=== PATIENT | male | born 1940 | race Caucasian/White ===

== ENCOUNTER 2018-01-01 15:44 | Emergency (ER) | payer OTHER ==
[2018-01-01 16:05] VITALS: BP 166/94; PULSE 73; BMI 22.0
--- NOTE | 2018-01-01 18:19 | PDOC ---
History of Present Illness - General Chief Complaint: G Tube Problem Stated Complaint: G TUBE REPLACEMENT Time Seen by Provider: 01/01/18 16:58 History Source: Spouse Exam Limitations: No Limitations - History of Present Illness Travel History: No Initial Comments: 01/01/18 18:14 77 year old male with history of TBI presents to the emergency him for evaluation of G-tube replacement. As per she states the tube was not flushing well and is concerned that is not functioning properly. also states is noted black specks in the tube and not sure what it is. She is also requesting that the tip of the G-tube be change secondary to small tear in the plastic but denies leakage. states patient was able to get his meds and feeding today Timing/Duration: reports: other Past History - Past Medical History Allergies/Adverse Reactions: Allergies Allergy/AdvReac Type Severity Reaction Status Date / Time No Known Allergies Allergy Verified 01/01/18 15:48 COPD: No Thyroid Disease: Yes Other medical history: TBI, divertuculitis - Suicide/Smoking/Psychosocial Hx Smoking History: Unknown if ever smoked Patient Lives Alone: No Lives with/in: spouse/SO Review of Systems - Review of Systems Able to Perform ROS?: Yes Constitutional: No: Symptoms Reported ABD/GI: No: Constipated, Diarrhea, Vomiting Integumentary: No: Symptoms Reported *Physical Exam - Vital Signs Last Vital Signs Temp Pulse Resp BP Pulse Ox 73 18 166/94 98 01/01/18 15:48 01/01/18 15:48 01/01/18 15:48 01/01/18 15:48 - Physical Exam General Appearance: Yes: Nourished, Appropriately Dressed. No: Apparent Distress HEENT: negative: Pale Conjunctivae Respiratory/Chest: positive: Lungs Clear, Normal Breath Sounds. negative: Respiratory Distress, Accessory Muscle Use Cardiovascular: positive: Regular Rhythm, Regular Rate. negative: Murmur Gastrointestinal/Abdominal: positive: Soft, Other (g-tube site intact, with no erythema, drainage, or swelling. G-tube with tanish yellow fluid within the tube). negative: Tenderness Extremity: positive: Normal Capillary Refill Integumentary: positive: Normal Color, Warm, Moist Medical Decision Making - Medical Decision Making 01/01/18 18:20 Patient here for evaluation of G-tube. As per she was concerned that it was not flushing well and there was black flecks within the tube along with small tear at the flange on the G-tube tip. Catheter secured in place. Using the orange declogger ,I was able to pass through without difficulty removing small particles of whitish small particles. Flushed with 120 mL of sterile water without difficulty. Unable to remove black flecks within the tube which appear to be within the lining of the G-tube. Unable to locate within the hospital (IR and OR) the matching G-tube tip for the G-tube #20. Patient will be discharged home with at home health aid. *DC/Admit/Observation/Transfer Diagnosis at time of Disposition: Gastrointestinal tube present, Gastrostomy tube obstruction - Discharge Dispostion Disposition: HOME Condition at time of disposition: Improved - Referrals - Patient Instructions Printed Discharge Instructions: How to Care for Your PEG Tube Additional Instructions: Please flush the tube after meals with water to decrease buildup within the tube. At this time I do not have the correct attachment for the G-tube and recommending contacting the training manager that placed the tube for replacement. - Post Discharge Activity
== END 2018-01-01 22:08 | disposition home or self-care (01) ==
LOC: JER 15:44
DX: Z46.59 Encounter for fitting and adjustment of other gastrointestinal appliance and device (principal); S06.9X0A Unspecified intracranial injury without loss of consciousness, initial encounter; E07.9 Disorder of thyroid, unspecified
CPT/HCPCS: 99281-25

== ENCOUNTER 2018-03-02 08:35 | Day surgery (SDC) | payer OTHER ==
[2018-02-25 12:55] VITALS: BMI 21.2
[2018-03-02] MEDS ORDERED: PROPOFOL 20 ML ONE (08:54)
[2018-03-02 09:20] VITALS: TEMP 98.3
[2018-03-02 11:25] VITALS: PULSE 67
[2018-03-02 12:08] VITALS: BP 124/78
== END 2018-03-02 12:20 | disposition home or self-care (01) ==
LOC: FASU-ENDO 08:35
PROVIDERS: ATTEND Internal Medicine Gastroenterology
PROC: 0DH63UZ Insertion of Feeding Device into Stomach, Percutaneous Approach (ICD-10-PCS; principal; 2018-03-02 10:45)
DX: Z43.1 Encounter for attention to gastrostomy (principal); R13.10 Dysphagia, unspecified

== ENCOUNTER 2019-03-02 18:16 | Emergency (ER) | payer OTHER ==
--- NOTE | 2019-03-02 18:25 | PDOC ---
History of Present Illness - General Chief Complaint: Pain Stated Complaint: PAIN History Source: Care Provider, Spouse Exam Limitations: Other - History of Present Illness Initial Comments: 03/02/19 18:20 HPI limited, pt nonverbal at baseline. 79 year old male with PMH TBI, hypothyroidism, nonverbal at baseline, peg tube, condom catheter use brought to ED for presumed abdominal pain by and package reinspector since yesterday. Per and package reinspector, pt has been leaning forward and appearing in pain intermittently. Pt is unable to localize pain. and package reinspector denied nausea, vomiting, diarrhea, constipation, blood in urine, blood in stool, fever, chills. Allergies: NKDA Past History - Past Medical History Allergies/Adverse Reactions: Allergies Allergy/AdvReac Type Severity Reaction Status Date / Time No Known Allergies Allergy Verified 03/02/19 18:18 Home Medications: Ambulatory Orders Ascorbate Calcium [Vitamin C] 500 mg GT DAILY 02/12/18 Baclofen 10 mg GT DAILY 02/12/18 Donepezil HCl 5 mg GT DAILY 02/12/18 Famotidine 20 mg GT DAILY 02/12/18 Levothyroxine [Synthroid -] 50 mcg GT DAILY 02/12/18 Risperidone 0.25 mg GT TID 02/12/18 Anemia: No Asthma: No Cancer: No Cardiac Disorders: No CVA: No COPD: No CHF: No Dementia: No Diabetes: No GI Disorders: No Disorders: No HTN: No Hypercholesterolemia: No Liver Disease: No Seizures: No Thyroid Disease: Yes - Surgical History Abdominal Surgery: No Appendectomy: No Cardiac Surgery: No Cholecystectomy: No Lung Surgery: No Neurologic Surgery: No Orthopedic Surgery: No - Suicide/Smoking/Psychosocial Hx Smoking History: Never smoked Hx Alcohol Use: No Drug/Substance Use Hx: No Substance Use Type: None Hx Substance Use Treatment: No Review of Systems - Review of Systems Able to Perform ROS?: Yes Comments:: 03/02/19 18:22 Unable to perform ROS. Pt is nonverbal. *Physical Exam - Physical Exam Comments: 03/02/19 18:22 Constitutional: Well-nourished, Well-developed, appearing stated age. HEENT: head is normocephalic, atraumatic. EOMI. PERRLA. Neck: supple. Full ROM. Heart: regular rhythm. no murmurs, rubs or gallops. Lungs: clear to auscultation bilaterally. no crackles, rhonchi or wheezing. no stridor. Abdomen: soft, nontender. normal bowel sounds. no rebound, guarding, masses. g- tube in place, no surrounding erythema, no discharge. Extremities: peripheral pulses intact. no lower extremity edema. Neurological: CN 2-12 grossly intact. moves all four extremities. Psych: awake, alert. intermittently follows commands. does not answer questions appropriately with yes/no head shaking. tracking with eyes. ED Treatment Course - LABORATORY CBC & Chemistry Diagram: 03/02/19 19:25 03/02/19 19:25 Medical Decision Making - Medical Decision Making 03/02/19 18:23 79 year old male with above PMH presented to ED for presumed abdominal pain. Initial Vital Signs Temp Pulse Resp BP Pulse Ox 98.2 F 67 16 143/83 99 03/02/19 18:18 03/02/19 18:18 03/02/19 18:18 03/02/19 18:18 03/02/19 18:18 Afebrile. No tachycardia. No tachypnea. Mild hypertension. No hypoxia on room air. Labs ordered: CBC, CMP, Mag, Phos, Lactate, coags Imaging ordered: CXR, CT abdomen/pelvis without contrast Medications ordered: Tylenol IV 03/02/19 19:01 Pt signed out to Dr. Gonzalez. Pending labs, imaging and discharge disposition. 03/02/19 22:25 Follow up: CBC WBC 4.1 K/mm3 (4.0-10.8) 03/02/19 19: RBC 4.36 M/mm3 (4.00-5.60) 03/02/19 19:25 Hgb 13.7 GM/dl (11.7-16.9) 03/02/19 19: Hct 41.3 % (35.4-49) 03/02/19 19: MCV 94.7 fl (80-96) 03/02/19 19: MCH 31.3 pg (25.7-33.7) 03/02/19: MCHC 33.1 g/dl (32.0-35.9) 03/02/19: RDW 12.4 % (11.9-15.9) 03/02/19 19:25 Plt Count 234 K/MM3 (134-434) 03/02/19 19:25 MPV 9.7 fl (7.5-11.1) 03/02/19 19:25 Absolute Neuts (auto) 2.6 K/mm3 03/02/19 19:25 Neutrophils % 62.8 % (42.8-82.8) 03/02/19 19:25 Lymphocytes % 27.6 % (8-40) 03/02/19 19:25 Monocytes % 6.2 % (3.8-10.2) 03/02/19 19:25 Eosinophils % 2.3 % (0-4.5) 03/02/19 19:25 Basophils % 1.1 % (0-2.0) 03/02/19 19:25 No leukocytosis. No anemia. CMP Sodium 140 mmol/L (136-145) 03/02/19 19:25 Potassium 4.2 mmol/L (3.5-5.1) 03/02/19 19:25 Chloride 104 mmol/L (98-107) 03/02/19 19:25 Carbon Dioxide 26 mmol/L (21-32) 03/02/19 19:25 Anion Gap 10 MMOL/L (8-16) 03/02/19 19:25 BUN 19 mg/dl (7-18) H 03/02/19 19:25 Creatinine 0.8 mg/dl (0.55-1.3) 03/02/19 19:25 Creat Clearance w eGFR 93.49 (>60) 03/02/19 19:25 Random Glucose 107 mg/dl (74-106) H 03/02/19 19:25 Lactic Acid 1.4 mmol/L (0.4-2.0) 03/02/19 19:25 Calcium 9.0 mg/dl (8.5-10) 03/02/19 19:25 Phosphorus 3.3 mg/dl (2.5-4.9) 03/02/19 19:25 Magnesium 1.9 mg/dL (1.8-2.4) 03/02/19 19:25 Total Bilirubin 0.7 mg/dl (0.2-1) 03/02/19 19:25 AST 23 U/L (15-37) 03/02/19 19:25 ALT 18 U/L (13-61) 03/02/19 19:25 Alkaline Phosphatase 78 U/L (45-117) 03/02/19 19:25 Troponin I < 0.03 ng/ml (0.00-0.05) 03/02/19 19:25 Total Protein 7.1 g/dl (6.4-8.2) 03/02/19 19:25 Albumin 3.9 g/dl (3.4-5.0) 03/02/19 19:25 Lipase 270 U/L (73-393) 03/02/19 19:25 Normal electrolytes. No CORINNE. No lactic acidosis. No transaminitis. Normal troponin. Normal lipase. Urine Test Results Urine Color Yellow 03/02/19 19:15 Urine Appearance Clear 03/02/19 19:15 Urine pH 7.5 (4.5-8) 03/02/19 19:15 Urine Protein Negative (NEGATIVE) 03/02/19 19:15 Urine Glucose (UA) Negative (NEGATIVE) 03/02/19 19:15 Urine Ketones Negative (NEGATIVE) 03/02/19 19:15 Urine Blood Negative (NEGATIVE) 03/02/19 19:15 Urine Nitrite Negative (NEGATIVE) 03/02/19 19:15 Urine Bilirubin Negative (NEGATIVE) 03/02/19 19:15 Ur Leukocyte Esterase Negative (NEGATIVE) 03/02/19 19:15 No evidence of UTI. No proteinuria. No hematuria. CT report: bladder wall thickening. -See official report. Pt was discharged and instructed to follow up with PCP and GI. *DC/Admit/Observation/Transfer Diagnosis at time of Disposition: Abdominal pain - Discharge Dispostion Disposition: HOME Condition at time of disposition: Fair - Referrals Referrals: Ismael Terry MD [Primary Care Provider] - - Patient Instructions Additional Instructions: Take all your medications as prescribed. Follow up with Dr. Terry for possible changing of the G-tube. Return to the emergency department immediately with ANY new, persistent or worsening symptoms. Continue any medications as previously prescribed by your physician. You should follow up with your primary doctor as soon as possible regarding today's emergency department visit. . Please make sure your doctor reviews the results of your emergency evaluation. Thank you for coming to the Emergency Department today for your care. It was a pleasure to see you today. Please note that your evaluation is INCOMPLETE until you follow-up with your doctor. - Post Discharge Activity
[2019-03-02 18:34] VITALS: BP 143/83; PULSE 67; TEMP 98.2; BMI 19.8
[2019-03-02] MEDS ORDERED: ACETAMINOPHEN 1000 MG/100 ML VIAL (NON FORMULARY) IVPB ONE (18:42)
--- NOTE | 2019-03-02 18:59 | PDOC ---
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 Pt nonverbal, but noted to have acute bouts where he sits up and grimaces in pain for a few moments. normal peg intake, no v/d. normally has two BMs per day, last BM was yesterday morning - flatus since then but no stool. no discoloration of urine, no cough, no f/c. - Physicial Exam PE: 03/02/19 18:58 Vital signs stable, afebrile Alert lying comfortably in stretcher during my exam, was previously noted by resident to have bouts of pain where he sat up and grimaced. No jaundice or pallor Lungs are clear, heart is regular Abdomen soft/nondistended. PEG tube in place and patent. Does grimace and guarding in the right middle/right lower quadrant, no rebound. Bowel sounds are normal., And catheter in place with clear yellow urine. No decubitus ulcerations - Medical Decision Making 03/02/19 18:58 79-year-old male with history of TBI, indwelling PEG tube, recurrent pneumonia and UTI presents with grimacing pain for 1 day. Vital signs are normal here without fever, does localize on exam to the right middle abdomen. Rule out UTI, rule out obstruction/colitis/diverticulitis. Labs, urinalysis Chest x-ray, CT of the abdomen and pelvis If above is within normal limits, can reassess Can follow-up with Dr. Terry regarding PEG tube
--- NOTE | 2019-03-02 19:24 | PDOC ---
*Physical Exam - Vital Signs Last Vital Signs Temp Pulse Resp BP Pulse Ox 98.2 F 67 16 143/83 99 03/02/19 18:18 03/02/19 18:18 03/02/19 18:18 03/02/19 18:18 03/02/19 18:18 ED Treatment Course - LABORATORY CBC & Chemistry Diagram: 03/02/19 19:25 03/02/19 19:25 Progress Note - Progress Note Progress Note: Care of this patient was transferred to mi from Dr. Berman at 1900 hrs. Patient is a 79-year-old male with dementia and was brought in by his caregivers for evaluation of abdominal pain. Patient has a workup pending including labs and CAT scan. Well follow-up on the workup and make appropriate disposition. Patient's blood work was normal, his CAT scan showed no acute pathology Patient will be discharged home discussed with and told her that if G-tube needs to be changed she should follow up with his GI doctor in the morning *DC/Admit/Observation/Transfer Diagnosis at time of Disposition: Abdominal pain Qualifiers: Abdominal location: unspecified location Qualified Code(s): R10.9 - Unspecified abdominal pain - Discharge Dispostion Disposition: HOME Condition at time of disposition: Fair Decision to Admit order: No - Referrals Referrals: Ismael Terry MD [Primary Care Provider] - - Patient Instructions Additional Instructions: Take all your medications as prescribed. Follow up with Dr. Terry for possible changing of the G-tube. Return to the emergency department immediately with ANY new, persistent or worsening symptoms. Continue any medications as previously prescribed by your physician. You should follow up with your primary doctor as soon as possible regarding today's emergency department visit. . Please make sure your doctor reviews the results of your emergency evaluation. Thank you for coming to the Emergency Department today for your care. It was a pleasure to see you today. Please note that your evaluation is INCOMPLETE until you follow-up with your doctor. - Post Discharge Activity
[2019-03-02] MEDS ORDERED: ACETAMINOPHEN INJECTION 100 ML IVPB ONE (19:29)
[2019-03-02 19:35] LABS: BASO % 1.1 % (0-2.0); EOS % 2.3 % (0-4.5); HEMATOCRIT 41.3 % (35.4-49); HEMOGLOBIN 13.7 GM/dl (11.7-16.9); LYMPH % 27.6 % (8-40); MCH 31.3 pg (25.7-33.7); MCHC 33.1 g/dl (32.0-35.9); MEAN CELL VOLUME 94.7 fl (80-96); MEAN PLT VOLUME 9.7 fl (7.5-11.1); MONO % 6.2 % (3.8-10.2); NEUT % 62.8 % (42.8-82.8); PLATELET COUNT 234 K/MM3 (134-434); RBC 4.36 M/mm3 (4.00-5.60); RDW 12.4 % (11.9-15.9); WHITE BLOOD COUNT 4.1 K/mm3 (4.0-10.8)
[2019-03-02 19:45] LABS: ACTIVATED PTT 24.8 SECONDS (25.2-36.5)
[2019-03-02 19:49] LABS: ALBUMIN 3.9 g/dl (3.4-5.0); ALK PHOS 78 U/L (45-117); ANION GAP 10 MMOL/L (8-16); BILIRUBIN,TOTAL 0.7 mg/dl (0.2-1); BLOOD UREA NITROGEN 19 mg/dl (7-18); CHLORIDE 104 mmol/L (98-107); CO2 26 mmol/L (21-32); CREATININE 0.8 mg/dl (0.55-1.3); GLUCOSE,RANDOM 107 mg/dl (74-106); INR 1.05 (0.82-1.09); MAGNESIUM 1.9 mg/dL (1.8-2.4); PHOSPHOROUS 3.3 mg/dl (2.5-4.9); POTASSIUM 4.2 mmol/L (3.5-5.1); PROTHROMBIN TIME (PATIENT) 11.7 SEC (10.2-13.0); SGOT/AST 23 U/L (15-37); SGPT/ALT 18 U/L (13-61); SODIUM 140 mmol/L (136-145); TOT PROT 7.1 g/dl (6.4-8.2)
== END 2019-03-03 00:31 | disposition home or self-care (01) ==
LOC: FER 18:16
PROC: 3E033NZ Introduction of Analgesics, Hypnotics, Sedatives into Peripheral Vein, Percutaneous Approach (ICD-10-PCS; principal; 2019-03-02)
DX: R10.9 Unspecified abdominal pain (principal); F03.90 Unspecified dementia, unspecified severity, without behavioral disturbance, psychotic disturbance, mood disturbance, and anxiety; E03.9 Hypothyroidism, unspecified; Z93.1 Gastrostomy status
CPT/HCPCS: 36415; 71045-TC-FY; 74176-TC; 80053; 81003; 83605; 83690; 83735; 84100; 84484; 85025; 85610; 85730; 87086; 99283-25; J0131

== ENCOUNTER 2020-04-19 22:41 | Emergency (ER) | payer OTHER ==
[2020-04-19 23:23] VITALS: BP 123/90; PULSE 113; TEMP 98.4; BMI 22.1
[2020-04-20] MEDS ORDERED: PANTOPRAZOLE SODIUM 40 MG VIAL IVPUSH ONE (00:35)
--- NOTE | 2020-04-20 00:44 | PDOC ---
History of Present Illness - General Chief Complaint: Coffee Ground Emesis Stated Complaint: GI BLEED History Source: Retirement Records - History of Present Illness Initial Comments: 04/20/20 01:02 80M w/hx alzheimers (nonverbal at baseline), PUD, p/w x1 coffee ground emesis from alf. Resident at [facility]. History limited by baseline mental status. Per alf nurse, he receives feeds via g-tube. Today during feeds he had x1 coffee ground emesis. Sent in for evaluation of possible GI bleed, aspiration. He is unable to provide further history due to baseline mental status. Per nursing facility no recent fevers, chills, or prior similar episodes. Past History - Medical History Allergies/Adverse Reactions: Allergies Allergy/AdvReac Type Severity Reaction Status Date / Time No Known Allergies Allergy Verified 04/19/20 23:00 Home Medications: Ambulatory Orders Ascorbate Calcium [Vitamin C] 500 mg GT DAILY 02/12/18 Baclofen 10 mg GT DAILY 02/12/18 Donepezil HCl 5 mg GT DAILY 02/12/18 Famotidine 20 mg GT DAILY 02/12/18 Levothyroxine [Synthroid -] 50 mcg GT DAILY 02/12/18 Risperidone 0.5 mg GT TID 02/12/18 Acetaminophen Liquid [Tylenol *Infant Drops* -] 20 mg PO QID MDD 80 04/19/20 Heparin - 5,000 unit SQ BID 04/19/20 [place]-3/Dha/Epa/Dpa/Fish Oil [[place]-3 1,050 mg Softgel] 1 each PO BID 04/19/20 Polyethylene Glycol 3350 [Miralax (For Daily Use) -] 17 gm PO DAILY 04/19/20 Anemia: No Asthma: No Cancer: No Cardiac Disorders: No CVA: No COPD: No CHF: No Dementia: Yes Diabetes: No GI Disorders: No Disorders: Yes HTN: No Hypercholesterolemia: No Liver Disease: No Seizures: No Thyroid Disease: Yes (HYPO) - Surgical History Abdominal Surgery: No Appendectomy: No Cardiac Surgery: No Cholecystectomy: No Lung Surgery: No Neurologic Surgery: No Orthopedic Surgery: No - Psycho-Social/Smoking History Smoking History: Never smoked - Substance Abuse Hx (Audit-C & DAST Scrn) How often the patient has a drink containing alcohol: Never Score: In Men: 4 or > Positive; In Women: 3 or > Positive: 0 Screen Result (Pos requires Nsg. Audit-10AR): Negative In the last yr the pt used illegal drug/Rx for NonMed reason: No Score: Yes response is considered Positive: 0 Screen Result (Positive result requires Nsg. DAST-10): Negative Review of Systems - Review of Systems Able to Perform ROS?: No (baseline nonverbal) *Physical Exam - Vital Signs Last Vital Signs Temp Pulse Resp BP Pulse Ox 98.4 F 113 H 18 123/90 94 L 04/19/20 22:57 04/19/20 22:57 04/19/20 22:57 04/19/20 22:57 04/19/20 22:57 - Physical Exam 04/20/20 00:45 GENERAL: Awake, in no acute distress HEAD: No signs of trauma, normocephalic, atraumatic EYES: PERRLA, EOMI, sclera anicteric, conjunctiva clear ENT: Auricles normal inspection, hearing grossly normal, nares patent, oropharynx clear without exudates. Moist mucosa NECK: Normal ROM, supple, no lymphadenopathy, JVD, or masses LUNGS: No distress, speaks full sentences, clear to auscultation bilaterally HEART: Regular rate and rhythm, normal S1 and S2, no murmurs, rubs or gallops, peripheral pulses normal and equal bilaterally. ABDOMEN: G tube in place. Soft, nontender, normoactive bowel sounds. No guarding, no rebound. No masses EXTREMITIES : Normal inspection, Normal range of motion, no edema. No clubbing or cyanosis NEUROLOGICAL: Unable to assess SKIN: Warm, Dry, normal turgor, no rashes or lesions noted ED Treatment Course - LABORATORY CBC & Chemistry Diagram: 04/20/20 01:12 04/20/20 01:12 - RADIOLOGY Radiology Studies Ordered: Category Date Time Status CHEST X-RAY PORTABLE* [RAD] Stat Radiology 04/20/20 00:35 Ordered Medical Decision Making - Medical Decision Making 04/20/20 00:46 80M w/hx alzheimers (baseline mental status nonverbal per alf), gastric ulcer p/w x1 brown emesis during feeds. Ddx GI bleed, aspiration. Plan: CBC CMP Cardiac profile PT/INR, APTT Protonix 40mg IV CT abdomen/pelvis w/o contrast CT chest w/o contrast Dispo: Pending labs, imaging 04/20/20 03:23 No acute process noted on CT abdomen pelvis. G-tube flushing well without resistance. No repeat episodes of vomiting during ED stay. CBC - WBC 14.5 with left shift. Plan for UA. 04/20/20 04:06 UA - negative Plan for discharge with close PCP follow up. Discharge - Discharge Information Problems reviewed: Yes Clinical Impression/Diagnosis: Gastrointestinal tube present Vomiting Qualifiers: Vomiting type: unspecified Vomiting Intractability: non-intractable Nausea presence: unspecified Qualified Code(s): R11.10 - Vomiting, unspecified Condition: Stable Disposition: HOME - Admission No - Follow up/Referral Referrals: Parish Gonzalez MD [Primary Care Provider] - - Patient Discharge Instructions Patient Printed Discharge Instructions: DI for Vomiting -- Adult Additional Instructions: You were seen in the ER after an episode of dark color vomit. Your bloodwork was normal. Your CT scan was normal, and did not show evidence of an aspiration. Follow up with your primary care physician as soon as possible, in the next 1-2 days. Return to the ER if you develop weakness, confusion, high fevers, chest pain, difficulty breathing, or if you have a repeat episode of bloody vomitus. - Post Discharge Activity
--- NOTE | 2020-04-20 01:11 | PDOC ---
Attending Attestation - Resident Resident Name: Nestor Delgado - ED Attending Attestation I have performed the following: I have examined & evaluated the patient, The case was reviewed & discussed with the resident, I agree w/resident's findings & plan - HPI HPI: 04/20/20 01:08 see resident hpi - Physicial Exam PE: 04/20/20 01:08 see resident exam - Medical Decision Making 04/20/20 01:09 80-year-old male nonverbal from a snf facility with gastrostomy tube in place with vomiting containing possible coffee-ground material with risk for aspiration sent in for evaluation Plan for plain CT of the chest abdomen and pelvis Disposition pending results Discharge - Discharge Information Problems reviewed: Yes Clinical Impression/Diagnosis: Vomiting, Gastrointestinal tube present - Follow up/Referral Referrals: Parish Gonzalez MD [Primary Care Provider] - - Patient Discharge Instructions - Post Discharge Activity
[2020-04-20] MEDS ORDERED: PANTOPRAZOLE SODIUM 40 MG VIAL ONE (01:28)
[2020-04-20 01:36] LABS: BASO % 0.5 % (0-2.0); EOS % 0.7 % (0-4.5); HEMATOCRIT 46.8 % (35.4-49); HEMOGLOBIN 15.7 GM/dL (11.7-16.9); LYMPH % 5.6 % (8-40); MCH 31.8 pg (25.7-33.7); MCHC 33.5 g/dl (32.0-35.9); MEAN PLT VOLUME 8.9 fl (7.5-11.1); MONO % 4.2 % (3.8-10.2); PLATELET COUNT 257 K/MM3 (134-434); RBC 4.93 M/mm3 (4.00-5.60); RDW 13.4 % (11.9-15.9); WHITE BLOOD COUNT 14.5 K/mm3 (4.0-10.0)
[2020-04-20 01:45] LABS: INR 0.97 (0.83-1.09); PROTHROMBIN TIME (PATIENT) 11.4 SEC (9.7-13.0)
[2020-04-20 01:48] LABS: ACTIVATED PTT 31.8 SECONDS (25.2-36.5)
[2020-04-20 02:00] LABS: ALBUMIN 3.7 g/dl (3.4-5.0); ALK PHOS 99 U/L (45-117); ANION GAP 8 MMOL/L (8-16); BILIRUBIN,TOTAL 0.6 mg/dL (0.2-1); BLOOD UREA NITROGEN 24.4 mg/dL (7-18); CALCIUM 9.8 mg/dL (8.5-10.1); CHLORIDE 100 mmol/L (98-107); CO2 32 mmol/L (21-32); GLUCOSE,RANDOM 116 mg/dL (74-106); POTASSIUM 3.9 mmol/L (3.5-5.1); SGOT/AST 26 U/L (15-37); SGPT/ALT 45 U/L (13-61); SODIUM 140 mmol/L (136-145); TOT PROT 7.8 g/dl (6.4-8.2)
[2020-04-20 04:01] LABS: EPI CELLS 16 /uL (0-25.1); HYALINE CASTS 3 /uL (0-3.1); URINE APPEARANCE CLOUDY; URINE BACTERIA 31 /uL (0-1359); URINE BILIRUBIN NEGATIVE (NEGATIVE); URINE COLOR YELLOW; URINE GLUCOSE (UA) NEGATIVE (NEGATIVE); URINE KETONE TRACE (NEGATIVE); URINE LEUK ESTERASE NEGATIVE (NEGATIVE); URINE NITRITE NEGATIVE (NEGATIVE); URINE PROTEIN NEGATIVE (NEGATIVE); URINE RBC 56 /uL (0-23.9); URINE WBC 9 /uL (0-25.8)
--- NOTE | 2020-04-20 17:35 | EKG ---
Test Reason : Blood Pressure : / mmHG Vent. Rate : 127 BPM Atrial Rate : 127 BPM P-R Int : 144 ms QRS Dur : 120 ms QT Int : 314 ms P-R-T Axes : 057 259 053 degrees QTc Int : 456 ms SINUS TACHYCARDIA RIGHT BUNDLE BRANCH BLOCK INFERIOR INFARCT , AGE UNDETERMINED ABNORMAL ECG NO PREVIOUS ECGS AVAILABLE Confirmed by GWEN CHILDS MD ([id number]) on 04/20/2020 5:35:24 PM Referred By: Confirmed By:GWEN CHILDS MD
== END 2020-04-20 05:10 ==
LOC: JER 22:41
PROC: 3E033GC Introduction of Other Therapeutic Substance into Peripheral Vein, Percutaneous Approach (ICD-10-PCS; principal; 2020-04-20)
DX: R11.10 Vomiting, unspecified (principal)
CPT/HCPCS: 36415; 71045-TC-FY; 71250-TC; 74176-TC; 80053; 81003; 82550; 84484; 85025; 85610; 85730; 86850; 86900; 86901; 93005; 93010; 99285-25

== ENCOUNTER 2020-07-05 19:20 | Emergency (ER) | payer OTHER ==
[2020-07-05 19:29] VITALS: BP 105/73; PULSE 73; TEMP 98.2; BMI 29.5
--- NOTE | 2020-07-05 19:56 | PDOC ---
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 2/2 PEG tube clog. The pt is unable to provide a history. No reports of PEG tube displacement. Per MT staff, no other complaints or changes 07/05/20 19:52 Past History - Medical History Allergies/Adverse Reactions: Allergies Allergy/AdvReac Type Severity Reaction Status Date / Time No Known Allergies Allergy Verified 07/05/20 19:23 Home Medications: Ambulatory Orders Ascorbate Calcium [Vitamin C] 500 mg GT DAILY 02/12/18 Baclofen 10 mg GT DAILY 02/12/18 Donepezil HCl 5 mg GT DAILY 02/12/18 Famotidine 20 mg GT DAILY 02/12/18 Levothyroxine [Synthroid -] 50 mcg GT DAILY 02/12/18 Risperidone 0.5 mg GT TID 02/12/18 Acetaminophen Liquid [Tylenol * Drops* -] 20 mg PO QID MDD 80 04/19/20 Heparin - 5,000 unit SQ BID 04/19/20 [place]-3/Dha/Epa/Dpa/Fish Oil [[place]-3 1,050 mg Softgel] 1 each PO BID 04/19/20 Polyethylene Glycol 3350 [Miralax (For Daily Use) -] 17 gm PO DAILY 04/19/20 Anemia: No Asthma: No Cancer: No Cardiac Disorders: No CVA: No COPD: No CHF: No Dementia: Yes Diabetes: No GI Disorders: No Disorders: Yes HTN: No Hypercholesterolemia: No Liver Disease: No Seizures: No Thyroid Disease: Yes (HYPO) - Surgical History Abdominal Surgery: No Appendectomy: No Cardiac Surgery: No Cholecystectomy: No Lung Surgery: No Neurologic Surgery: No Orthopedic Surgery: No - Psycho-Social/Smoking History Smoking History: Never smoked Have you smoked in the past 12 months: No Information on smoking cessation initiated: No - Substance Abuse Hx (Audit-C & DAST Scrn) How often the patient has a drink containing alcohol: Never Score: In Men: 4 or > Positive; In Women: 3 or > Positive: 0 Screen Result (Pos requires Nsg. Audit-10AR): Negative In the last yr the pt used illegal drug/Rx for NonMed reason: No Score: Yes response is considered Positive: 0 Screen Result (Positive result requires Nsg. DAST-10): Negative Review of Systems - Review of Systems Able to Perform ROS?: No (2/2 medical condition) *Physical Exam - Vital Signs Last Vital Signs Temp Pulse Resp BP Pulse Ox 98.2 F 73 20 105/73 97 07/05/20 19:25 07/05/20 19:25 07/05/20 19:25 07/05/20 19:25 07/05/20 19:25 - Physical Exam GENERAL: Awake HEAD: No signs of trauma, normocephalic EYES: PERRLA, sclera anicteric ENT:nares patent, oropharynx clear without exudates. 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 2/2 PEG tube clog. Pt's PEG tube was unclogged with mechanical device PEG tube with subsequent good flow of fluid and air Plan for D/C to [facility] notified Dispo: home 07/05/20 20:03 Discharge - Discharge Information Problems reviewed: Yes Clinical Impression/Diagnosis: PEG tube malfunction Condition: Improved Disposition: HOME - Admission No - Follow up/Referral Referrals: Parish Gonzalez MD [Primary Care Provider] - - Patient Discharge Instructions Patient Printed Discharge Instructions: How to Care for Your PEG Tube Additional Instructions: You were seen in the Emergency Department for evaluation of a clogged PEG tube. Your tube was unclogged. Review the handout provided at discharge. Follow up with your primary care provider within a week. - Post Discharge Activity
--- NOTE | 2020-07-05 20:11 | PDOC ---
Documentation entered by Chelsea Sifuentes SCRIBE, acting as scribe for Emelina Muse DO. Emelina Muse DO: This documentation has been prepared by the scr Bear russell Ana, SCRIBE, under my direction and personally reviewed by me in its entirety. I confirm that the documentation accurately reflects all work, treatment, procedures, and medical decision making performed by me. Attending Attestation - Resident Resident Name: Zainab Fischer - ED Attending Attestation I have performed the following: I have examined & evaluated the patient, The case was reviewed & discussed with the resident, I agree w/resident's findings & plan, Exceptions are as noted - HPI HPI: 07/05/20 19:41 See resident HPI - Physicial Exam PE: 07/05/20 19:41 See resident exam - Medical Decision Making 07/05/20 20:10 80-year-old male here for clogged G-tube After gentle brush cleaning tube flushed without difficulty Will DC back to facility Discharge - Discharge Information Problems reviewed: Yes Clinical Impression/Diagnosis: PEG tube malfunction Condition: Improved Disposition: HOME - Follow up/Referral - Patient Discharge Instructions Patient Printed Discharge Instructions: How to Care for Your PEG Tube Additional Instructions: You were seen in the Emergency Department for evaluation of a clogged PEG tube. Your tube was unclogged. Review the handout provided at discharge. Follow up with your primary care provider within a week. - Post Discharge Activity
== END 2020-07-06 00:15 | disposition home or self-care (01) ==
LOC: JER 19:20
DX: K94.23 Gastrostomy malfunction (principal)
CPT/HCPCS: 99282-25

== ENCOUNTER 2020-07-18 22:26 | Inpatient (IN) | payer OTHER ==
[2020-07-18 22:42] VITALS: BMI 23.4
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
--- NOTE | 2020-07-18 22:53 | PDOC ---
Documentation entered by Kierra Vieira SCRIBE, acting as scribe for Mariza Edgar MD. Mariza Edgar MD: This documentation has been prepared by the Isha petty Brenda, SCRIBE, under my direction and personally reviewed by me in its entirety. I confirm that the documentation accurately reflects all work, treatment, procedures, and medical decision making performed by me. Attending Attestation - Resident Resident Name: KanePb - ED Attending Attestation I have performed the following: I have examined & evaluated the patient, The case was reviewed & discussed with the resident, I agree w/resident's findings & plan, Exceptions are as noted - HPI HPI: 07/18/20 22:35 The patient is a 80 year old male with a sign PMH of Alzheimers/demnti, PEG tube, hypothyroidism who presents to the ED BIBA from [facility] after being found on the floor in the ID. Per EMS systolic BP was 116 and finger stick was 125. Patient is nonverbal at baseline, but is alert. Allergies:NKA - Physicial Exam PE: 07/18/20 22:47 wnwd 80 yo male BIBA from [facility] after being found down on the floor at the ID. Patient is alert,nonverbal at baseline 07/18/20 22:49 head no scalp lacerations, superficial abrasion to rt occiput Face there is a right 4 cm palpable mass on his right mandible neck no appreciable tenderness upon exam lungs cta b/l cvs [id number] abdomen soft,G tube intact,site is clear, no erythema,no drainage skin warm and dry extremities no deformities neuro alert,nonverbal,he does track you with his eyes,he can raise both arms and keep them up,he can raise his legs off the bed, no facial droop appreciated 07/18/20 22:52 07/19/20 00:47 - Medical Decision Making 07/18/20 23:34 ekg is NSR @98 bpm, RBBB which is chronic 07/19/20 00:22 plan Imaging studies of head,neck, cardiac w/u,labs,UA cxr and admit 07/19/20 00:51 I spoke with the nurse on the forth floor at the senior living and the pt was last seen in his bed at 7:30. 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
--- NOTE | 2020-07-18 23:26 | PDOC ---
History of Present Illness - General Chief Complaint: Injury Stated Complaint: FALL Time Seen by Provider: 07/18/20 22:32 History Source: Care Home Records Exam Limitations: Dementia - History of Present Illness Initial Comments: 07/19/20 00:18 80M PMH alzheimers dementia, PEG, hypothyroidism BIBEMS from [facility] for an unwitnessed fall. Unable to obtain hx from patient 2/2 nonverbal. Info based on EMS report, NH papers, and chart review. NKA. tPA Exclusion checklist 3-4.5h - Time Elapsed Date last known well: 07/18/20 Time last known well: 19:30 Elaspsed time: 2 Day(s) and 6 Hour(s) and 59 Minutes - Thrombolytic Therapy Candidate Is patient eligible for thrombolytic therapy: No - Ineligibility reason(s) Reasons No tPA given: Outside of window - delayed arrival (last seen by CT RN in bed at 7:30pm, unknown if normal then) NIH Stroke Scale - Last Known Well Date/Time & Onset Date Last Known Well: 07/18/20 Time Last Known Well: 19:30 - Initial Evaluation Level of consciousness: Alert Ask patient the month and their age: Both incorrect (nonverbal) Ask patient to open & close eyes; make fist and let go: Obeys both correctly (nonverbal) Best gaze (horizontal eye movement): Normal Facial paresis (Show teeth/raise eyebrows/close eyes tight): Normal symmetrical movement Motor Function: Left Arm: Normal Motor Function: Right Arm: Normal (extends arm 90 (or 45) degrees for 10 seconds without drift Motor Function: Left Leg: Normal (extends leg 30 degrees for 5 seconds without drift) Motor Function: Right Leg: Normal (extends leg 30 degrees for 5 seconds without drift) Limb Ataxia: Untestable (Joint fused or limb amputated), explain: (can only follow very simple commands) Best language (Describe picture, name items, read sentences): Mute Dysarthria (read several words): Near unintelligible or unable to speak (baseline nonverbal) Past History - Medical History Allergies/Adverse Reactions: Allergies Allergy/AdvReac Type Severity Reaction Status Date / Time No Known Allergies Allergy Verified 07/18/20 22:42 Home Medications: Ambulatory Orders Ascorbate Calcium [Vitamin C] 500 mg GT DAILY 02/12/18 Baclofen 10 mg GT DAILY 02/12/18 Donepezil HCl 5 mg GT DAILY 02/12/18 Famotidine 20 mg GT DAILY 02/12/18 Levothyroxine [Synthroid -] 50 mcg GT DAILY 02/12/18 Risperidone 0.5 mg GT HS 02/12/18 Acetaminophen Liquid [Tylenol 100mg/mL *Infant Drops* -] 20 mg PO QID MDD 80 04/19/20 Heparin - 5,000 unit SQ BID 04/19/20 Oshkosh-3/Dha/Epa/Dpa/Fish Oil [[place]-3 1,050 mg Softgel] 1 each PO BID 04/19/20 Polyethylene Glycol 3350 [Miralax 119 gm Btl -] 17 gm PO DAILY 04/19/20 Anemia: No Asthma: No Cancer: No Cardiac Disorders: No CVA: No COPD: No CHF: No Dementia: Yes Diabetes: No GI Disorders: No Disorders: Yes HTN: No Hypercholesterolemia: No Liver Disease: No Seizures: No Thyroid Disease: Yes (HYPO) - Surgical History Abdominal Surgery: No Appendectomy: No Cardiac Surgery: No Cholecystectomy: No Lung Surgery: No Neurologic Surgery: No Orthopedic Surgery: No - Psycho-Social/Smoking History Smoking History: Never smoked Have you smoked in the past 12 months: No Information on smoking cessation initiated: No - Substance Abuse Hx (Audit-C & DAST Scrn) How often the patient has a drink containing alcohol: Never Score: In Men: 4 or > Positive; In Women: 3 or > Positive: 0 Screen Result (Pos requires Nsg. Audit-10AR): Negative In the last yr the pt used illegal drug/Rx for NonMed reason: No Score: Yes response is considered Positive: 0 Screen Result (Positive result requires Nsg. DAST-10): Negative Review of Systems - Review of Systems Able to Perform ROS?: No *Physical Exam - Vital Signs Last Vital Signs Temp Pulse Resp BP Pulse Ox 98.3 F 101 H 18 120/93 96 07/18/20 22:34 07/18/20 22:34 07/18/20 22:34 07/18/20 22:34 07/18/20 22:34 - Physical Exam GEN: NAD, awake, and alert HEENT: NC/AT, EOMI - tracking, PERRL. No facial asymmetry. Nontender midline. CV: S1/S2, RRR, no m/r/g LUNG: CTAB, no wheezes, crackles, rales, rhonchi. GI: Soft, ndnt, +BS, no guarding, no rebound. PEG in place w/o purulence or drainage MSK: No obvious deformities of all extremities. SKIN: Warm, dry, no rashes appreciated. PSYCH: nonverbal but follows or mimics very simple commands NEURO: limited 2/2 patient condition. Pt able to independently range arms and legs. ED Treatment Course - LABORATORY CBC & Chemistry Diagram: 07/19/20 05:35 07/19/20 05:35 Medical Decision Making - Medical Decision Making 80[address] BIB[address] from [address] for unwitnessed fall. baseline nonverbal. syncope w/u CT head and neck EKG 23:22 HR 98 NSR RBBB; axis wnl/borderline; QTc 485; unchanged from 04/20/20 07/19/20 00:31 called by [facility] Radiology - hyperdense left MCA, rec MRI/MRA 07/19/20 00:32 EXAM: CT CERVICAL SPINE W/O CONTR HISTORY: Trauma, fell in long term. COMPARISON: None. FINDINGS: The vertebral bodies are normal in height with normal cervical lordosis. No acute fractures or dislocations. Multilevel degenerative changes. Normal prevertebral soft tissues. Tonsillar calcifications noted. Epiglottis normal in thickness. Patent airway. Biapical pleural/parenchymal scarring with calcification noted in the right apical scarring. IMPRESSION: No acute traumatic osseous abnormality. Other findings as above. One or more of the following dose reduction techniques were used: automated exposure control, adjustment of the mA and/or kV according to patient size, use of iterative reconstructive technique. THIS DOCUMENT HAS BEEN ELECTRONICALLY SIGNED Dayne Dowling MD 07/19/2020 00:23 KELLY Basilio Please call Imaging Voltage Tester [phone] with questions. INTERPRETING RADIOLOGIST: Dayne Dowling MD Electronically Signed: Jul 19, 2020 12:24AM EDT 07/19/20 00:53 EXAM: CT HEAD WITHOUT CONTRAST HISTORY: . Trauma.. COMPARISON: None. FINDINGS: Age-related intracranial volume loss. No midline shift. Old infarcts in the left frontal, temporal, and parietal lobes resulting in some passive dilatation of the left lateral ventricle. Chronic microangiopathic ischemic changes in the white matter. No acute intracranial hemorrhage. No abnormal acute extra-axial fluid collections. Intracranial atherosclerosis. Hyperdense left MCA suggested. Prominent cisterna magna. Intact osseous calvarium. Clear mastoids and middle ear cavities. Minimal to mild mucosal thickening in the ethmoid sinuses. IMPRESSION: 1. Suggestion of hyperdense left MCA. Further evaluation with MRI is recommended. 2. Old left-sided infarcts. 3. Chronic microangiopathic ischemic change in the white matter. 4. Intracranial atherosclerosis. One or more of the following dose reduction techniques were used: automated exposure control, adjustment of the mA and/or kV according to patient size, use of iterative reconstructive technique. THIS DOCUMENT HAS BEEN ELECTRONICALLY SIGNED Dayne Dowling MD 07/19/2020 00:17 KELLY Lui. Please call Imaging Voltage Tester [phone] with questions. INTERPRETING RADIOLOGIST: Dayne Dowling MD Electronically Signed: Jul 19, 2020 12:18AM EDT Patient Full Name: TERRANCE MURPHY Patient Accession No: [id number] Patient : 1940 Reason for Exam: trauma found on of oh Referring Physician: HERVE CARLOS Critical findings and recommendations of MRI/MRA discussed with Dr Kane MD on FriJuly 19 2020 00:26:54 EDT. One or more of the following dose reduction techniques were used: automated exposure control, adjustment of the mA and/or kV according to patient size, use of iterative reconstructive technique. THIS DOCUMENT HAS BEEN ELECTRONICALLY SIGNED Dayne Dowling MD 07/19/2020 00:36 KELLY Basilio Please call Imaging Voltage Tester [phone] with questions. INTERPRETING RADIOLOGIST: Dayne Dowling MD Electronically Signed: Jul 19, 2020 12:38AM EDT Limited ability to complete NIHSS 2/2 advanced dementia and nonverbal Dr. Herve santos CT RN who states pt last seen in bed at 7:30pm but unknown if he was baseline then. True last known well is unknown but definitely beyond tPA window. paged out to Dr. Rivas 07/19/20 01:31 danielle Rivas - admit, MRI 07/19/20 02:12 endorsed / admitted Discharge - Discharge Information Problems reviewed: Yes Clinical Impression/Diagnosis: Fall Condition: Fair - Admission Yes - Follow up/Referral - Patient Discharge Instructions - Post Discharge Activity
[2020-07-19 00:21] LABS: BASO % 0.4 % (0-2.0); EOS % 1.8 % (0-4.5); HEMATOCRIT 44.4 % (35.4-49); HEMOGLOBIN 15.3 GM/dL (11.7-16.9); MCH 32.5 pg (25.7-33.7); MCHC 34.5 g/dl (32.0-35.9); MEAN CELL VOLUME 94.2 fl (80-96); NEUT % 75.8 % (42.8-82.8); PLATELET COUNT 215 K/MM3 (134-434); RBC 4.71 M/mm3 (4.00-5.60); RDW 13.1 % (11.9-15.9); WHITE BLOOD COUNT 7.4 K/mm3 (4.0-10.0)
[2020-07-19 00:34] LABS: PROTHROMBIN TIME (PATIENT) 11.8 SEC (9.7-13.0)
[2020-07-19 00:37] LABS: ACTIVATED PTT 37.4 SECONDS (25.2-36.5)
[2020-07-19 00:48] LABS: ALBUMIN 3.5 g/dl (3.4-5.0); ALK PHOS 99 U/L (45-117); ANION GAP 4 MMOL/L (8-16); BILIRUBIN,TOTAL 0.4 mg/dL (0.2-1); BLOOD UREA NITROGEN 20.4 mg/dL (7-18); CALCIUM 9.2 mg/dL (8.5-10.1); CHLORIDE 105 mmol/L (98-107); CO2 30 mmol/L (21-32); GLUCOSE,RANDOM 98 mg/dL (74-106); POTASSIUM 4.1 mmol/L (3.5-5.1); SGOT/AST 21 U/L (15-37); SGPT/ALT 36 U/L (13-61); SODIUM 139 mmol/L (136-145); TOT PROT 7.6 g/dl (6.4-8.2)
[2020-07-19] MEDS ORDERED: ACETAMINOPHEN 1000 MG/100 ML VIAL (NON FORMULARY) IVPB ONE (01:23)
[2020-07-19] MEDS ORDERED: ACETAMINOPHEN INJECTION 100 ML IVPB ONE (01:25)
[2020-07-19] MEDS ORDERED: ASPIRIN 81 MG CHEWABLE TABLETS PO ONE (01:32)
[2020-07-19] MEDS ORDERED: ATORVASTATIN CA 40 MG TABLET (FP) PO ONE (01:33)
[2020-07-19] MEDS ORDERED: ATORVASTATIN CA 40 MG TABLET (FP) ONE (01:38)
[2020-07-19] MEDS ORDERED: ASPIRIN 81 MG CHEWABLE TABLETS ONE (01:38)
--- NOTE | 2020-07-19 02:25 | PN ---
Teaching Attending Note Name of Resident: John García ATTENDING PHYSICIAN STATEMENT I saw and evaluated the patient. I reviewed the resident's note and discussed the case with the resident. I agree with the resident's findings and plan as documented. SUBJECTIVE: Unable to obtain history from patient due to nonverbal status 80yoM with history of CVA, Alzheimer disease, nonverbal at baseline, PEG dependent, hypothyroid, and h/o GI bleed who [facility] being [facility] at [facility]. Patient was reportedly last seen in bed around 7:30pm, unclear if he had any new deficits at that time. On arrival to the ED, patient was not noted to have any focal motor deficits. CT head showed hyperdense left MCA as well as old left sided infarcts and chronic microangiopathic ischemic changes. CT C-spine showed no acute findings. ED discussed with neuro, Dr. Rivas, who recommended MRI in the morning. Patient arrived outside of time window for tPA. He received aspirin and atorvastatin. OBJECTIVE: Vital Signs - 24 hr 07/18/20 07/19/20 22:34 03:47 Temperature 98.3 F Pulse Rate 101 H Respiratory 18 Rate Blood Pressure 120/93 O2 Sat by Pulse 96 96 Oximetry (%) EXAM Gen: awake, alert, NAD HEENT: large cyst right mandible, nontender, no erythema CV: RRR, no MRG appreciated Resp: Unlabored, CTAB Abd: Soft, NT, ND. PEG in place, no surrounding erythema or tenderness at insertino site Ext: no edema Neuro: Face symmetric, tongue midline. Follows simple commands and mimics movements. Moving all extremities spontaneously, PERRL, EOMI ASSESSMENT AND PLAN: 80yoM with history of CVA, Alzheimer disease, nonverbal at baseline, PEG dependent, hypothyroid, and h/o GI bleed who presents from his [facility] after being [facility] on the floor at his [facility] found to have suspected acute left MCA stroke. Suspected acute left MCA stroke No new neuro deficits noted on exam from reported baseline Presented outside of TPA window - MRI brain - tele - neuro checks q4h - neuro consult appreciated - continue aspirin Alzheimer: continue donepezil, risperidone Hypothyroid: Continue levothyroxine PEG: clarify tube feeds with NH. Maintenance fluids in interim DVT ppx: Lovenox subq
--- OUTSIDE RECORDS SUMMARY | 2020-07-19 02:31 | XMS ---
:1940 [facility] Providers Name Role Phone Lucas [...] is protected by Article 27-F of the [facility] Public Health law. If you continue you may haveaccess to information: Regarding HIV / AIDS; Provided by facilities licensed or operated by the [facility] Office of Mental Health; or Provided by the [facility] Office for People With Developmental Disabilities. If such information is present, then the following [facility] mandated warning applies: This information [...] law may result in a fine or assisted sentence or both. A general authorization for the release of medical or other information is NOT sufficient authorization for further disclosure. 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 Status Observation Data S ource(s) Description Advance No completed [facility] Advance No completed [facility] Advance No completed [facility] Allergies and Adverse Reactions Type Description Substance Reaction Status Data Source(s ) Drug allergy No Known Allergies No Known NO KNOWN ALLERG [place] Allergies [facility] Drug allergy No Known Drug No Known Drug [facility] Allergy Allergy Hospital Encounters Encounter Providers Location Date Indications Data Source(s ) Outpatient Attender: Andre 10/04/2019 [facility] Tricia Holt 02:00:00 PM Hospital [facility] Emergency Attender: Lucas 08/02/2019 10:38:00 G TUBE PRO BLEMS Nina Hawk MD AM EDT - 08/02/2019 [facility] 02:39:00 PM EDT G TUBE PROBLEMS [facility] Patient discharged. Outpatient Attender: Andre 06/07/2019 08:25:00 Tricia [facility] EDT Hospital Outpatient Attender: Dread 06/02/2019 10:15:00 INFECTION O F Nina Pascal AM EDT - 06/02/2019 [facility] 08:35:00 AM EDT INFECTION OF GASTROSTOMY Patient discharged. Outpatient Attender: Andre Holt 05/18/2018 09:33:00 AM [facility] EDT Outpatient Attender: Andre Yanet 05/12/2017 09:26:00 AM [facility] EDT Outpatient Attender: Andre Yanet 09/24/2016 09:30:00 AM [facility] EST - 09/25/2016 12:01:00 AM EST Outpatient Attender: Andre Yanet 08/22/2016 09:30:00 AM [facility] EDT - 08/26/2016 12:01:00 AM EDT Outpatient Attender: Andre 07/15/2016 08:41:00 AM [facility] SeligerReferrer: Andre EDT [facility] Inpatient Attender: Andre 11/03/2014 08:47:00 PM TBI [facility] SeligerAdmitter: Andre EST - 01/05/2015 [place] 01:52:00 PM EDT TBI Functional Status Medications Medication Brand Start Product Dose Route Administrative Pharmacy atus Indications Reaction Description Data Name Date Form Instructions Instructions Source(s) Risperidone Risper TABLET 0.25 ORAL complet W emili 0.25 MG idone mg [facility] Oral Tablet [facility] [Risperdal] Levothyroxi Levoth TABLET 50 ug ORAL complet [facility] Sodium yroxin [facility] [place] 0.05 MG e Hospital Oral Tablet Sodium [Unithroid] Levothyroxi Levoth TABLET 50 ug ORAL complet [facility] Sodium yroxin [facility] [place] 0.05 MG e Hospital Oral Tablet Sodium [Unithroid] Donepezil Donepe TABLET 5 mg ORAL complet Whi te hydrochlori zil ed [place] de 5 MG Hcl Hospital Oral Tablet [Aricept] Donepezil Hcl Baclofen 10 Baclof TABLET 10 mg ORAL complet [facility] Oral en [facility] [place] Tablet [facility] Famotidine Famoti TABLET 20 mg ORAL complet W emili 20 MG Oral dine [facility] Tablet [facility] [Pepcid] Baclofen 10 Baclof TABLET 10 mg ORAL complet [facility] Oral en [facility] [place] [facility]t [facility] Donepezil Donepe TABLET 5 mg ORAL complet Whi te hydrochlori zil ed [place] de 5 MG Hcl Hospital Oral Tablet [Aricept] Donepezil Hcl Famotidine Famoti TABLET 20 mg ORAL complet W emili 20 MG Oral dine [facility] [place] Tablet [facility] [Pepcid] Risperidone Risper TABLET 0.25 ORAL complet W emili 0.25 MG idone mg [facility] Providers Payer name Policy Policy ID Covered Covered Policy Plan Info rmation type / constitution party ID constitution party's Sifuentes Coverage relationship type to sifuentes MAC RISK [id number] SP [id number] [employer] MEDICARE [id number] SP [id number] A MEDICARE [id number] SP [id number] RETAIL [id number] SP [id number] [facility] MAC RISK [id number] SP [id number] MANAGEMENT MEDICARE [id number] SP [id number] A [facility] SERVICE ENCLAVE AT [id number] PT [id number] [place] MEDIC[place] [id number] PT [id number] RETAIL [id number] PT [id number] [employer] SELF PAY PT INSURANCE MAC RISK [id number] SP [id number] [facility], [facility] Problems, Conditions, and Diagnoses Code Display Name Description Problem Type Effective Data Dates Source(s) K94.23 Gastrostomy K94.23 Diagnosis 08/02/2019 [place] malfunction 12:03:00 PM Hospital EDT Z87.01 Personal history of PERSONAL HISTORY OF Diagnosis 019 [facility] pneumonia PNEUMONIA 08:25:00 AM Hospital (recurrent) (RECURRENT) EDT 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 Diagnosis 06/07/2019 [facility] (current) drug (CURRENT) [...] Z87.820 Personal history of Z87.820 Diagnosis 06/02/2019 [place] traumatic brain 08:34:00 AM Hospital injury EDT E03.9 Hypothyroidism, E03.9 Diagnosis 06/02/2019 [facility] unspecified 08:34:00 AM Hospital EDT I10 Essential (primary) I10 Diagnosis 06/02/2019 [place] hypertension 08:34:00 AM Hospital EDT K31.89 Other [...] HEMORRHAGE TRAUMATIC SUBDURAL Diagnosis 11/03/19 15 Tricia Bnoe FOLLOWING INJURY HEM 08:47:00 PM Hospita l WITHOUT OPEN EST INTRACRANIAL WOUND WITH STATE OF CONSCIOUSNESS UNSPECIFIED Surgeries/Procedures Procedure Description Date Indications Data Source(s) Gastrographin Gi Series 08/02/2019 [facility] 12:00:00 AM EDT Results ID Date Data Source [id number] 03/06/2020 12:00:00 [facility] Name Value Range Interpretation Description Data Sup porting Code Source(s) Document(s ) SARS CoV-2 [facility] Interpretation This lab was ordered by [facility] and reported by [employer]. Procedure Social History Code Duration Value Status Description Data Source(s ) Smoking Unknown if ever completed Unknown if ever [facility] Smoking Unknown if ever completed Unknown if ever [facility] Vital Signs ID Date Data Source UNK Name Value Range Interpretation Code Description Data Source(s) Diastolic blood 80 mm[Hg] 80 mm[Hg] [facility] pressure [facility] Systolic blood 125 mm[Hg] 125 mm[Hg] [facility] ns pressure Hospital Respiratory rate 20 /min 20 /min [facility] Heart rate 77 /min 77 /min [facility] Body temperature 36.69534 36.68029 [facility] Body temperature 97.2 [degF] 97.2 [degF] [facility] Body mass index 22.0 kg/m2 22.0 kg/m2 [facility] (BMI) [Ratio] Hospital Body weight 145.31 145.31 [lb_av] [facility] ins [lb_av] Hospital Diastolic blood 75 mm[Hg] 75 mm[Hg] [facility] pressure Hospital Systolic blood 120 mm[Hg] 120 mm[Hg] [facility] ns pressure Hospital Respiratory rate 16 /min 16 /min [facility] Heart rate 65 /min 65 /min [facility] Body temperature 36.30163 36.64818 [facility] Body temperature 97.8 [degF] 97.8 [degF] [facility] Body mass index 22.7 kg/m2 22.7 kg/m2 [facility] (BMI) [Ratio] Hospital Body weight 145 [lb_av] 145 [lb_av] [facility] ID Date Data Source [id number] 11/12/2019 03:56:00 PM EST [facility] ospital Name Value Range Interpretation Code Description Data Source(s) WEIGHT 68.100963 kg 68.416042 kg [facility] ID Date Data Source [id number] 11/12/2019 03:56:00 PM EST [facility] Name Value Range Interpretation Code Description Data Source(s) HEIGHT 172.72 cm 172.72 cm [facility] spital WEIGHT 64.528956 kg 64.697165 kg [facility]
--- NOTE | 2020-07-19 02:54 | HP ---
CHIEF COMPLAINT: unwitnessed fall PCP: Parish Gonzalez MD HISTORY OF PRESENT ILLNESS: Mr. Carter (nonverbal at BL) is a 80M w a h/o alzheimers dementia, PEG tube insertion, and hypothyroidism. The patient is a resident of [facility] and was seen sitting up in bed at 7 PM and found on the gound 2 hours later. The patient was brought in by ambulance and a limited history was obtained in the ED. During interview the patient is capable of mimicking arm movements but inatentive to further direction and nonverbal. The patient is comfortable and does not appear to be in any acute distress. The patient does not appear to have facial droop and the patient has an NIH stroke scale of 2. ER course was notable for: (1) Tachy at 116 (2) mild small echymotic area on lower abdomen (3) L MCA infarct Recent Travel: no PAST MEDICAL HISTORY: as above PAST SURGICAL HISTORY: as above Social History: Smoking: na Alcohol: na Drugs: na Allergies No Known Allergies Allergy (Verified 07/18/20 22:42) HOME MEDICATIONS: Home Medications Medication Instructions Recorded Ascorbate Calcium [Vitamin C] 500 mg GT DAILY 02/12/18 Baclofen 10 mg GT DAILY 02/12/18 Donepezil HCl 5 mg GT DAILY 02/12/18 Famotidine 20 mg GT DAILY 02/12/18 Levothyroxine [Synthroid -] 50 mcg GT DAILY 02/12/18 Risperidone 0.5 mg GT TID 02/12/18 Acetaminophen Liquid [Tylenol 20 mg PO QID MDD 80 04/19/20 *Infant Drops* -] Heparin - 5,000 unit SQ BID 04/19/20 [place]-3/Dha/Epa/Dpa/Fish Oil 1 each PO BID 04/19/20 [[place]-3 1,050 mg Softgel] Polyethylene Glycol 3350 [Miralax 17 gm PO DAILY 04/19/20 (For Daily Use) -] REVIEW OF SYSTEMS HEENT: Absent: rhinorrhea, nasal congestion, throat pain, throat swelling, difficulty swallowing, mouth swelling, ear pain, eye pain, visual changes CARDIOVASCULAR: Absent: chest pain, syncope, palpitations, irregular heart rate, lightheadedness, peripheral edema RESPIRATORY: Absent: cough, shortness of breath, dyspnea with exertion, orthopnea, wheezing, stridor, hemoptysis GASTROINTESTINAL:mild distension MUSCULOSKELETAL: Absent: myalgia, arthralgia, joint swelling, back pain, neck pain NEUROLOGIC: Absent: headache, focal weakness PSYCHIATRIC: possible sundown PHYSICAL EXAMINATION Vital Signs - 24 hr 07/18/20 22:34 Temperature 98.3 F Pulse Rate 101 H Respiratory 18 Rate Blood Pressure 120/93 O2 Sat by Pulse 96 Oximetry (%) GENERAL: Awake, alert, and fully oriented, in no acute distress. HEAD: Normal with no signs of trauma. EYES: Pupils equal, round and reactive to light, extraocular movements intact, sclera anicteric, conjunctiva clear. No lid lag. NECK: Normal range of motion, right submandibular cyst with black comedone LUNGS: Breath sounds equal, clear to auscultation bilaterally. No wheezes, and no crackles. No accessory muscle use. HEART: Regular rate and rhythm, normal S1 and S2 without murmur, rub or gallop. ABDOMEN: Soft, nontender, mildly distended, normoactive bowel sounds, no guarding, no rebound, no masses. No hepatomegaly or splenomegaly. Peg tube insertion normal in appearance LOWER EXTREMITIES: 2+ pulses, warm, well-perfused. No calf tenderness. No peripheral edema. NEUROLOGICAL: muscle strength testing reveals no focal deficits 5/5 strength Laboratory Results - last 24 hr 07/19/20 07/19/20 07/19/20 00:09 00:09 00:09 WBC 7.4 RBC 4.71 Hgb 15.3 Hct 44.4 MCV 94.2 MCH 32.5 MCHC 34.5 RDW 13.1 Plt Count 215 MPV 9.0 Absolute Neuts (auto) 5.6 Neutrophils % 75.8 Lymphocytes % 16.0 D Monocytes % 6.0 Eosinophils % 1.8 D Basophils % 0.4 Nucleated RBC % 0 PT with INR 11.80 INR 1.00 PTT (Actin FS) 37.4 H Sodium 139 Potassium 4.1 Chloride 105 Carbon Dioxide 30 Anion Gap 4 L BUN 20.4 H Creatinine 1.0 Est GFR (CKD-EPI)AfAm 82.60 Est GFR (CKD-EPI)NonAf 71.27 Random Glucose 98 Calcium 9.2 Magnesium 2.0 Total Bilirubin 0.4 AST 21 ALT 36 Alkaline Phosphatase 99 Creatine Kinase 38 Troponin I < 0.02 Total Protein 7.6 Albumin 3.5 Blood Type Antibody Screen 07/19/20 00:09 WBC RBC Hgb Hct MCV MCH MCHC RDW Plt Count MPV Absolute Neuts (auto) Neutrophils % Lymphocytes % Monocytes % Eosinophils % Basophils % Nucleated RBC % PT with INR INR PTT (Actin FS) Sodium Potassium Chloride Carbon Dioxide Anion Gap BUN Creatinine Est GFR (CKD-EPI)AfAm Est GFR (CKD-EPI)NonAf Random Glucose Calcium Magnesium Total Bilirubin AST ALT Alkaline Phosphatase Creatine Kinase Troponin I Total Protein Albumin Blood Type O POSITIVE Antibody Screen Negative ASSESSMENT/PLAN: Mr. Carter (nonverbal at BL) is a 80M w a h/o alzheimers dementia, PEG tube insertion, and hypothyroidism. The patient is a resident of [facility] and was seen sitting up in bed at 7 PM and found on the gound 2 hours later. #unwitnessed fall secondary to suspected L MCA stroke Head CT - L MCA infarct NIH stroke scale of 2 1. Suggestion of hyperdense left MCA. Further evaluation with MRI is recommended. 2. Old left-sided infarcts. 3. Chronic microangiopathic ischemic change in the white matter. Dr. Rivas (Neuro) consulted - instructed for MRI in AM Patient is capable of following simple commands yet appears to be sundowning - keep window shades open Admit to telemetry Neurochecks Received asa NPO Gentle fluids #Hypothyroidism cw home levothyroxine tsh level ordered #Alzheimer dementia cw home donepezil #Insomnia cw Respiradone #DVTppx SCDs Family Medical History Family History: As Documented Visit type - Medication Review Med list reviewed for High Risk Meds patients 65 and older: Yes - Emergency Visit Emergency Visit: Yes ED Registration Date: 07/19/20 Care time: The patient presented to the Emergency Department on the above date and was hospitalized for further evaluation of their emergent condition. - New Patient This patient is new to me today: Yes Date on this admission: 07/19/20 - Critical Care Critical Care patient: No ATTENDING PHYSICIAN STATEMENT I saw and evaluated the patient. I reviewed the resident's note and discussed the case with the resident. I agree with the resident's findings and plan as documented. SUBJECTIVE: OBJECTIVE: ASSESSMENT AND PLAN:
--- NOTE | 2020-07-19 03:40 | HP ---
CHIEF COMPLAINT: PCP: HISTORY OF PRESENT ILLNESS: ER course was notable for: (1) (2) (3) Recent Travel: PAST MEDICAL HISTORY: PAST SURGICAL HISTORY: Social History: Smoking: Alcohol: Drugs: Allergies No Known Allergies Allergy (Verified 07/18/20 22:42) HOME MEDICATIONS: Home Medications Medication Instructions Recorded Ascorbate Calcium [Vitamin C] 500 mg GT DAILY 02/12/18 Baclofen 10 mg GT DAILY 02/12/18 Donepezil HCl 5 mg GT DAILY 02/12/18 Famotidine 20 mg GT DAILY 02/12/18 Levothyroxine [Synthroid -] 50 mcg GT DAILY 02/12/18 Risperidone 0.5 mg GT TID 02/12/18 Acetaminophen Liquid [Tylenol 20 mg PO QID MDD 80 04/19/20 * Drops* -] Heparin - 5,000 unit SQ BID 04/19/20 [place]-3/Dha/Epa/Dpa/Fish Oil 1 each PO BID 04/19/20 [[place]-3 1,050 mg Softgel] Polyethylene Glycol 3350 [Miralax 17 gm PO DAILY 04/19/20 (For Daily Use) -] REVIEW OF SYSTEMS CONSTITUTIONAL: Absent: fever, chills, diaphoresis, generalized weakness, malaise, loss of appetite, weight change HEENT: Absent: rhinorrhea, nasal congestion, throat pain, throat swelling, difficulty swallowing, mouth swelling, ear pain, eye pain, visual changes CARDIOVASCULAR: Absent: chest pain, syncope, palpitations, irregular heart rate, lightheadedness, peripheral edema RESPIRATORY: Absent: cough, shortness of breath, dyspnea with exertion, orthopnea, wheezing, stridor, hemoptysis GASTROINTESTINAL: Absent: abdominal pain, abdominal distension, nausea, vomiting, diarrhea, constipation, melena, hematochezia GENITOURINARY: Absent: dysuria, frequency, urgency, hesitancy, hematuria, flank pain, genital pain MUSCULOSKELETAL: Absent: myalgia, arthralgia, joint swelling, back pain, neck pain SKIN: Absent: rash, itching, pallor HEMATOLOGIC/IMMUNOLOGIC: Absent: easy bleeding, easy bruising, lymphadenopathy, frequent infections ENDOCRINE: Absent: unexplained weight gain, unexplained weight loss, heat intolerance, cold intolerance NEUROLOGIC: Absent: headache, focal weakness or paresthesias, dizziness, unsteady gait, seizure, mental status changes, bladder or bowel incontinence PSYCHIATRIC: Absent: anxiety, depression, suicidal or homicidal ideation, hallucinations. PHYSICAL EXAMINATION Vital Signs - 24 hr 07/18/20 22:34 Temperature 98.3 F Pulse Rate 101 H Respiratory 18 Rate Blood Pressure 120/93 O2 Sat by Pulse 96 Oximetry (%) GENERAL: Awake, alert, and fully oriented, in no acute distress. HEAD: Normal with no signs of trauma. EYES: Pupils equal, round and reactive to light, extraocular movements intact, sclera anicteric, conjunctiva clear. No lid lag. EARS, NOSE, THROAT: Ears normal, nares patent, oropharynx clear without exudates. Moist mucous membranes. NECK: Normal range of motion, supple without lymphadenopathy, JVD, or masses. LUNGS: Breath sounds equal, clear to auscultation bilaterally. No wheezes, and no crackles. No accessory muscle use. HEART: Regular rate and rhythm, normal S1 and S2 without murmur, rub or gallop. ABDOMEN: Soft, nontender, not distended, normoactive bowel sounds, no guarding, no rebound, no masses. No hepatomegaly or splenomegaly. MUSCULOSKELETAL: Normal range of motion at all joints. No bony deformities or tenderness. No CVA tenderness. UPPER EXTREMITIES: 2+ pulses, warm, well-perfused. No cyanosis. No clubbing. No peripheral edema. LOWER EXTREMITIES: 2+ pulses, warm, well-perfused. No calf tenderness. No peripheral edema. NEUROLOGICAL: Cranial nerves II-XII intact. Normal speech. Normal gait. PSYCHIATRIC: Cooperative. Good eye contact. Appropriate mood and affect. SKIN: Warm, dry, normal turgor, no rashes or lesions noted, normal capillary refill. Laboratory Results - last 24 hr 07/19/20 07/19/20 07/19/20 00:09 00:09 00:09 WBC 7.4 RBC 4.71 Hgb 15.3 Hct 44.4 MCV 94.2 MCH 32.5 MCHC 34.5 RDW 13.1 Plt Count 215 MPV 9.0 Absolute Neuts (auto) 5.6 Neutrophils % 75.8 Lymphocytes % 16.0 D Monocytes % 6.0 Eosinophils % 1.8 D Basophils % 0.4 Nucleated RBC % 0 PT with INR 11.80 INR 1.00 PTT (Actin FS) 37.4 H Sodium 139 Potassium 4.1 Chloride 105 Carbon Dioxide 30 Anion Gap 4 L BUN 20.4 H Creatinine 1.0 Est GFR (CKD-EPI)AfAm 82.60 Est GFR (CKD-EPI)NonAf 71.27 Random Glucose 98 Calcium 9.2 Magnesium 2.0 Total Bilirubin 0.4 AST 21 ALT 36 Alkaline Phosphatase 99 Creatine Kinase 38 Troponin I < 0.02 Total Protein 7.6 Albumin 3.5 Blood Type Antibody Screen 07/19/20 00:09 WBC RBC Hgb Hct MCV MCH MCHC RDW Plt Count MPV Absolute Neuts (auto) Neutrophils % Lymphocytes % Monocytes % Eosinophils % Basophils % Nucleated RBC % PT with INR INR PTT (Actin FS) Sodium Potassium Chloride Carbon Dioxide Anion Gap BUN Creatinine Est GFR (CKD-EPI)AfAm Est GFR (CKD-EPI)NonAf Random Glucose Calcium Magnesium Total Bilirubin AST ALT Alkaline Phosphatase Creatine Kinase Troponin I Total Protein Albumin Blood Type O POSITIVE Antibody Screen Negative ASSESSMENT/PLAN: ATTENDING PHYSICIAN STATEMENT I saw and evaluated the patient. I reviewed the resident's note and discussed the case with the resident. I agree with the resident's findings and plan as documented. SUBJECTIVE: OBJECTIVE: ASSESSMENT AND PLAN:
[2020-07-19] MEDS: SODIUM CHLORIDE 1,000 ML IV SCH (04:47)
[2020-07-19 06:47] LABS: BASO % 0.4 % (0-2.0); EOS % 2.5 % (0-4.5); HEMATOCRIT 41.4 % (35.4-49); HEMOGLOBIN 14.5 GM/dL (11.7-16.9); LYMPH % 21.1 % (8-40); MCH 32.7 pg (25.7-33.7); MCHC 34.9 g/dl (32.0-35.9); MEAN CELL VOLUME 93.7 fl (80-96); MEAN PLT VOLUME 9.6 fl (7.5-11.1); MONO % 7.2 % (3.8-10.2); NEUT % 68.8 % (42.8-82.8); PLATELET COUNT 207 K/MM3 (134-434); RBC 4.42 M/mm3 (4.00-5.60); WHITE BLOOD COUNT 6.6 K/mm3 (4.0-10.0)
[2020-07-19 06:58] LABS: ALBUMIN 3.3 g/dl (3.4-5.0); BILIRUBIN,TOTAL 0.8 mg/dL (0.2-1); BLOOD UREA NITROGEN 19.7 mg/dL (7-18); CALCIUM 9.1 mg/dL (8.5-10.1); CREATININE 0.8 mg/dL (0.55-1.3); PHOSPHOROUS 2.8 mg/dL (2.5-4.9); POTASSIUM 3.9 mmol/L (3.5-5.1); TOT PROT 7.2 g/dl (6.4-8.2)
--- NOTE | 2020-07-19 08:57 | CONSULT ---
Consult - text type - Consultation Consultation Note: Neurology CHIEF COMPLAINT: unwitnessed fall PCP: Parish Gonzalez MD HISTORY OF PRESENT ILLNESS: Mr. Carter (nonverbal at BL) is a 80M w a h/o alzheimers dementia, PEG tube insertion, and hypothyroidism. The patient is a resident of [facility]. On day of admission he was seen sitting up in bed at 7 PM and found on the ground 2 hours later. The patient was brought in by ambulance and a limited history was obtained in the ED. During interview nonverbal but was interactive with examiner and grossly moving all extremities equally. The patient was comfortable and does not appear to be in any acute distress. CT of C-spine reviewed and showed mild degenerative arthritis with no fracture or acute pathology. Head CT performed and demonstrated no acute intracranial pathology though ER resident overnight discussed dense MCA signal reportedly on CT. Patient without apparent deficits and I recommended having MRI of the brain completed which is pending at this time. Once completed, this would likely provide more insight as to whether any acute abnormalities. Recent Travel: no PAST MEDICAL HISTORY: as above PAST SURGICAL HISTORY: as above Social History: Smoking: na Alcohol: na Drugs: na Family Medical History Family History: HTN REVIEW OF SYSTEMS HEENT: Absent: rhinorrhea, nasal congestion, throat pain, throat swelling, difficulty swallowing, mouth swelling, ear pain, eye pain, visual changes CARDIOVASCULAR: Absent: chest pain, syncope, palpitations, irregular heart rate, lightheadedness, peripheral edema RESPIRATORY: Absent: cough, shortness of breath, dyspnea with exertion, orthopnea, wheezing, stridor, hemoptysis GASTROINTESTINAL:mild distension MUSCULOSKELETAL: Absent: myalgia, arthralgia, joint swelling, back pain, neck pain NEUROLOGIC: Absent: headache, focal weakness PSYCHIATRIC: possible sundown Allergies No Known Allergies Allergy (Verified 07/18/20 22:42) HOME MEDICATIONS: Home Medications Medication Instructions Recorded Ascorbate Calcium [Vitamin C] 500 mg GT DAILY 02/12/18 Baclofen 10 mg GT DAILY 02/12/18 Donepezil HCl 5 mg GT DAILY 02/12/18 Famotidine 20 mg GT DAILY 02/12/18 Levothyroxine [Synthroid -] 50 mcg GT DAILY 02/12/18 Risperidone 0.5 mg GT TID 02/12/18 Acetaminophen Liquid [Tylenol 20 mg PO QID MDD 80 04/19/20 *Infant Drops* -] Heparin - 5,000 unit SQ BID 04/19/20 [place]-3/Dha/Epa/Dpa/Fish Oil 1 each PO BID 04/19/20 [[place]-3 1,050 mg Softgel] Polyethylene Glycol 3350 [Miralax 17 gm PO DAILY 04/19/20 (For Daily Use) -] Active Medications Sodium Chloride (Normal Saline -) 1,000 mls @ 7 mls/hr IV ASDIR LAZARO Last Admin: 07/19/20 04:47 Dose: 7 mls/hr Documented by: PHYSICAL EXAMINATION Vital Signs Period Temp Pulse Resp BP Sys/[place] Pulse Ox Last 24 Hr 98.2 F-98.3 F 94-101 18-20 120-121/93-93 95-96 GENERAL: Awake, alert, and fully oriented, in no acute distress. HEAD: Normal with no signs of trauma. EYES: Pupils equal, round and reactive to light, extraocular movements intact, sclera anicteric, conjunctiva clear. No lid lag. NECK: Normal range of motion, right submandibular cyst with black comedone LUNGS: Breath sounds equal, clear to auscultation bilaterally. No wheezes, and no crackles. No accessory muscle use. HEART: Regular rate and rhythm, normal S1 and S2 without murmur, rub or gallop. ABDOMEN: Soft, nontender, mildly distended, normoactive bowel sounds, no guarding, no rebound, no masses. No hepatomegaly or splenomegaly. Peg tube insertion normal in appearance LOWER EXTREMITIES: 2+ pulses, warm, well-perfused. No calf tenderness. No peripheral edema. NEUROLOGICAL: CN appear intact, strength equal bilaterally and symmetric, sensory intact light touch CBCD WBC 6.6 K/mm3 (4.0-10.0) 07/19/20 05:35 RBC 4.42 M/mm3 (4.00-5.60) 07/19/20 05:35 Hgb 14.5 GM/dL (11.7-16.9) 07/19/20 05:35 Hct 41.4 % (35.4-49) 07/19/20 05:35 MCV 93.7 fl (80-96) 07/19/20 05:35 MCHC 34.9 g/dl (32.0-35.9) 07/19/20 05:35 RDW 13.0 % (11.9-15.9) 07/19/20 05:35 Plt Count 207 K/MM3 (134-434) 07/19/20 05:35 MPV 9.6 fl (7.5-11.1) 07/19/20 05:35 CMP Sodium 140 mmol/L (136-145) 07/19/20 05:35 Potassium 3.9 mmol/L (3.5-5.1) 07/19/20 05:35 Chloride 106 mmol/L (98-107) 07/19/20 05:35 Carbon Dioxide 28 mmol/L (21-32) 07/19/20 05:35 Anion Gap 7 MMOL/L (8-16) L 07/19/20 05:35 BUN 19.7 mg/dL (7-18) H 07/19/20 05:35 Creatinine 0.8 mg/dL (0.55-1.3) 07/19/20 05:35 Random Glucose 92 mg/dL (74-106) 07/19/20 05:35 Calcium 9.1 mg/dL (8.5-10.1) 07/19/20 05:35 Total Bilirubin 0.8 mg/dL (0.2-1) 07/19/20 05:35 AST 21 U/L (15-37) 07/19/20 05:35 ALT 33 U/L (13-61) 07/19/20 05:35 Alkaline Phosphatase 92 U/L (45-117) 07/19/20 05:35 Total Protein 7.2 g/dl (6.4-8.2) 07/19/20 05:35 Albumin 3.3 g/dl (3.4-5.0) L 07/19/20 05:35 CARDIAC ENZYMES Creatine Kinase 38 U/L (26-308) 07/19/20 00:09 Troponin I < 0.02 ng/ml (0.00-0.05) 07/19/20 00:09 ASSESSMENT/PLAN: Mr. Carter (nonverbal at BL) is a 80M w a h/o alzheimers dementia, PEG tube insertion, and hypothyroidism. The patient is a resident of [facility]. On day of admission he was seen sitting up in bed at 7 PM and found on the ground 2 hours later. The patient was brought in by ambulance and a limited history was obtained in the ED. During interview the patient was capable of mimicking arm movements but inatentive to further direction and nonverbal. The patient was comfortable and does not appear to be in any acute distress. The patient did not appear to have facial droop and the patient has an NIH stroke scale of 2. CT of C-spine reviewed and showed mild degenerative arthritis with no fracture or acute pathology. Head CT performed and demonstrated no acute intracranial pathology. though ER resident overnight discussed dense MCA signal reportedly on CT. Patient without apparent deficits and I recommended having MRI of the brain completed which is pending at this time. Once completed, this would likely provide more insight as to whether any acute abnormalities. continue donepezil for dementia Monitor blood pressure, maintain normotensive range. Monitor hypothyroidism, continue levothyroxine. Daily ASA 81mg recommended. Fall precautions. Physical therapy as tolerated.
--- NOTE | 2020-07-19 09:59 | EKG ---
Test Reason : Blood Pressure : / mmHG Vent. Rate : 098 BPM Atrial Rate : 098 BPM P-R Int : 178 ms QRS Dur : 126 ms QT Int : 380 ms P-R-T Axes : 036 -30 005 degrees QTc Int : 485 ms NORMAL SINUS RHYTHM INDETERMINATE AXIS RIGHT BUNDLE BRANCH BLOCK ABNORMAL ECG WHEN COMPARED WITH ECG OF 20-APR-2020 03:03, CRITERIA FOR INFERIOR INFARCT ARE NO LONGER PRESENT NON-SPECIFIC CHANGE IN ST SEGMENT IN ANTERIOR LEADS T WAVE INVERSION NOW EVIDENT IN INFERIOR LEADS Confirmed by Zachary Mcdonald ([id number]) on 07/19/2020 9:58:32 AM Referred By: Confirmed By:Zachary Mcdonald
--- NOTE | 2020-07-19 17:17 | PN ---
Progress Note (short form) - Note Progress Note: events noted spoke with s/p fall Head CT negative Vital Signs - 24 hr 07/19/20 07/19/20 07/19/20 03:47 06:09 10:13 Temperature 98.2 F 98.3 F Pulse Rate [ 94 H 91 H Right Radial] Respiratory 20 21 H Rate Blood Pressure 121/93 127/89 [Right Arm] O2 Sat by Pulse 96 95 96 Oximetry (%) 07/19/20 15:05 Temperature 97.9 F Pulse Rate [ 73 Right Radial] Respiratory 19 Rate Blood Pressure 102/80 [Right Arm] O2 Sat by Pulse 97 Oximetry (%) Current Medications Generic Name Dose Route Start Last Admin Trade Name Freq PRN Reason Stop Dose Admin Acetaminophen 650 mg 07/19/20 17:47 Tylenol Oral Solution - GT Q6H PRN FEVER Baclofen 10 mg 07/20/20 10:00 Lioresal - GT DAILY LAZARO Donepezil HCl 5 mg 07/20/20 10:00 Aricept - GT DAILY LAZARO Famotidine 20 mg 07/20/20 10:00 Pepcid - PEG DAILY LAZARO Sodium Chloride 1,000 mls @ 7 mls/hr 07/19/20 03:30 07/19/20 04:47 Normal Saline - IV 7 mls/hr ASDIR LAZARO Administration Levothyroxine Sodium 50 mcg 07/20/20 07:00 Synthroid - GT DAILY@0700 LAZARO Risperidone 0.5 mg 07/19/20 22:00 Risperdal - GT TID LAZARO Laboratory Results - last 24 hr 07/19/20 07/19/20 07/19/20 00:09 00:09 00:09 WBC 7.4 RBC 4.71 Hgb 15.3 Hct 44.4 MCV 94.2 MCH 32.5 MCHC 34.5 RDW 13.1 Plt Count 215 MPV 9.0 Absolute Neuts (auto) 5.6 Neutrophils % 75.8 Lymphocytes % 16.0 D Monocytes % 6.0 Eosinophils % 1.8 D Basophils % 0.4 Nucleated RBC % 0 PT with INR 11.80 INR 1.00 PTT (Actin FS) 37.4 H Sodium 139 Potassium 4.1 Chloride 105 Carbon Dioxide 30 Anion Gap 4 L BUN 20.4 H Creatinine 1.0 Est GFR (CKD-EPI)AfAm 82.60 Est GFR (CKD-EPI)NonAf 71.27 Random Glucose 98 Calcium 9.2 Phosphorus Magnesium 2.0 Total Bilirubin 0.4 AST 21 ALT 36 Alkaline Phosphatase 99 Creatine Kinase 38 Troponin I < 0.02 Total Protein 7.6 Albumin 3.5 Blood Type Antibody Screen 07/19/20 07/19/20 07/19/20 00:09 05:35 05:35 WBC 6.6 RBC 4.42 Hgb 14.5 Hct 41.4 MCV 93.7 MCH 32.7 MCHC 34.9 RDW 13.0 Plt Count 207 MPV 9.6 Absolute Neuts (auto) 4.5 Neutrophils % 68.8 Lymphocytes % 21.1 D Monocytes % 7.2 Eosinophils % 2.5 Basophils % 0.4 Nucleated RBC % 0 PT with INR INR PTT (Actin FS) Sodium 140 Potassium 3.9 Chloride 106 Carbon Dioxide 28 Anion Gap 7 L BUN 19.7 H Creatinine 0.8 Est GFR (CKD-EPI)AfAm 98.47 Est GFR (CKD-EPI)NonAf 84.96 Random Glucose 92 Calcium 9.1 Phosphorus 2.8 Magnesium 2.0 Total Bilirubin 0.8 AST 21 ALT 33 Alkaline Phosphatase 92 Creatine Kinase Troponin I Total Protein 7.2 Albumin 3.3 L Blood Type O POSITIVE Antibody Screen Negative S1 S2 RRR Lungs clear Abd- soft, NT, GT No edema moving his extremities A/P s/p fall dementia Hypothyroidism -- CT head negative -- Neurology eval noted -- resume GT feeds -- for MRI -- if negative, can be dc to OR Problem List - Problems (1) Fall Code(s): W19.XXXA - UNSPECIFIED FALL, INITIAL ENCOUNTER (2) Dementia Code(s): F03.90 - UNSPECIFIED DEMENTIA WITHOUT BEHAVIORAL DISTURBANCE
[2020-07-19] MEDS ORDERED: ACETAMINOPHEN 650 MG/20.3 ML ORAL SOLUTION (CUPS) GT PRN ×2 (17:32→17:47)
[2020-07-19] MEDS ORDERED: ACETAMINOPHEN 160 MG/5 ML *Children Solution GT SCH (18:00)
[2020-07-19] MEDS: risperiDONE 0.5 MG TABLET GT SCH (22:43)
[2020-07-20] MEDS: SODIUM CHLORIDE 1,000 ML IV SCH (05:50)
[2020-07-20] MEDS: risperiDONE 0.5 MG TABLET GT SCH ×3 (05:53→21:51)
[2020-07-20] MEDS: LEVOTHYROXINE NA 50 MCG TABLET (FP) GT SCH (06:00)
[2020-07-20] MEDS ORDERED: PT OWN MED DRAWER 7, Y5N ONE (11:08)
[2020-07-20] MEDS: DONEPEZIL HCL 5 MG TABLET (FP) GT SCH (11:16)
[2020-07-20] MEDS: FAMOTIDINE 20 MG TABLET PEG SCH (11:16)
--- NOTE | 2020-07-20 11:58 | DS ---
Physical Examination Vital Signs: Vital Signs Temperature 98.5 F 07/20/20 07:00 Pulse Rate 80 07/20/20 10:00 Respiratory Rate 16 07/20/20 10:00 Blood Pressure 141/62 07/20/20 10:00 O2 Sat by Pulse Oximetry (%) 100 07/20/20 10:00 Labs: CBC, BMP 07/19/20 05:35 07/19/20 05:35 Discharge Summary Reason For Visit: DEMENTIA,FALL, CEREBROVASCULAR ACCIDENT (CVA) Current Active Problems Dementia (Acute) Fall (Acute) Condition: Fair - Instructions Referrals: Parish Gonzalez MD [Primary Care Provider] - - Home Medications Comprehensive Discharge Medication List: Ambulatory Orders Ascorbate Calcium [Vitamin C] 500 mg GT DAILY 02/12/18 Baclofen 10 mg GT DAILY 02/12/18 Donepezil HCl 5 mg GT DAILY 02/12/18 Famotidine 20 mg GT DAILY 02/12/18 Levothyroxine [Synthroid -] 50 mcg GT DAILY 02/12/18 Risperidone 0.5 mg GT HS 02/12/18 Acetaminophen Liquid [Tylenol *Infant Drops* -] 20 mg PO QID MDD 80 04/19/20 Heparin - 5,000 unit SQ BID 04/19/20 [place]-3/Dha/Epa/Dpa/Fish Oil [[place]-3 1,050 mg Softgel] 1 each PO BID 04/19/20 Polyethylene Glycol 3350 [Miralax (For Daily Use) -] 17 gm PO DAILY 04/19/20
--- NOTE | 2020-07-20 14:36 | PN ---
Progress Note (short form) - Note Progress Note: events noted spoke with s/p fall Head CT negative MRI brain negative Vital Signs - 24 hr 07/19/20 07/19/20 07/19/20 15:05 21:00 23:00 Temperature 97.9 F 97.3 F L Pulse Rate 88 Pulse Rate [ 73 Right Radial] Respiratory 19 20 Rate Blood Pressure 118/74 Blood Pressure 102/80 [Right Arm] O2 Sat by Pulse 97 96 94 L Oximetry (%) 07/20/20 07/20/20 07/20/20 02:00 07:00 09:00 Temperature 98.7 F 98.5 F Pulse Rate 94 H 96 H Pulse Rate [ Right Radial] Respiratory 18 18 Rate Blood Pressure 98/34 L 116/82 Blood Pressure [Right Arm] O2 Sat by Pulse 100 Oximetry (%) 07/20/20 07/20/20 10:00 13:48 Temperature 97.1 F L Pulse Rate 80 84 Pulse Rate [ Right Radial] Respiratory 16 18 Rate Blood Pressure 141/62 115/72 Blood Pressure [Right Arm] O2 Sat by Pulse 100 Oximetry (%) Current Medications Generic Name Dose Route Start Last Admin Trade Name Freq PRN Reason Stop Dose Admin Acetaminophen 650 mg 07/19/20 17:47 Tylenol Oral Solution - GT Q6H PRN FEVER Baclofen 10 mg 07/20/20 10:00 Lioresal - GT DAILY LAZARO Donepezil HCl 5 mg 07/20/20 10:00 07/20/20 11:16 Aricept - GT 5 mg DAILY LAZARO Administration Famotidine 20 mg 07/20/20 10:00 07/20/20 11:16 Pepcid - PEG 20 mg DAILY LAZARO Administration Sodium Chloride 1,000 mls @ 7 mls/hr 07/19/20 03:30 07/20/20 05:50 Normal Saline - IV Not Given ASDIR LAZARO Levothyroxine Sodium 50 mcg 07/20/20 07:00 07/20/20 06:00 Synthroid - GT 50 mcg DAILY@0700 LAZARO Administration Risperidone 0.5 mg 07/19/20 22:00 07/20/20 05:53 Risperdal - GT 0.5 mg TID LAZARO Administration S1 S2 RRR Lungs clear Abd- soft, NT, GT No edema moving his extremities A/P s/p fall dementia Hypothyroidism -- CT head negative -- Neurology eval noted -- resume GT feeds -- MRI negative --COVID pending -- will dc to [place] if COVID is negative Problem List - Problems (1) Fall Code(s): W19.XXXA - UNSPECIFIED FALL, INITIAL ENCOUNTER (2) Dementia Code(s): F03.90 - UNSPECIFIED DEMENTIA WITHOUT BEHAVIORAL DISTURBANCE
[2020-07-20] MEDS: BACLOFEN 10 MG TABLET (FP) GT SCH (14:43)
[2020-07-21] MEDS: SODIUM CHLORIDE 1,000 ML IV SCH (06:00)
[2020-07-21] MEDS: LEVOTHYROXINE NA 50 MCG TABLET (FP) GT SCH (06:02)
[2020-07-21] MEDS: risperiDONE 0.5 MG TABLET GT SCH ×2 (06:02→13:00)
[2020-07-21] MEDS ORDERED: PT OWN MED DRAWER 7, Y5N ONE ×2 (08:31→09:30)
--- NOTE | 2020-07-21 08:46 | PN ---
Progress Note (short form) - Note Progress Note: Neurology CHIEF COMPLAINT: unwitnessed fall PCP: Parish Gonzalez MD HISTORY OF PRESENT ILLNESS: Mr. Carter (nonverbal at BL) is a 80M w a h/o alzheimers dementia, PEG tube insertion, and hypothyroidism. The patient is a resident of [facility]. On day of admission he was seen sitting up in bed at 7 PM and found on the ground 2 hours later. The patient was brought in by ambulance and a limited history was obtained in the ED. During interview nonverbal but was interactive with examiner and grossly moving all extremities equally. The patient was comfortable and does not appear to be in any acute distress. CT of C-spine reviewed and showed mild degenerative arthritis with no fracture or acute pathology. Head CT performed and demonstrated no acute intracranial pathology though ER resident overnight discussed dense MCA signal reportedly on CT. 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 No mass lesion, acute infarction, and no hemorrhage. Patient for possible discharge, primary care physician reviewed. Patient comfortable this morning. Asleep but arousable and without distress. Active Medications Acetaminophen (Tylenol Oral Solution -) 650 mg GT Q6H PRN PRN Reason: FEVER Baclofen (Lioresal -) 10 mg GT DAILY [facility] Last Admin: 07/20/20 14:43 Dose: 10 mg Documented by: Donepezil HCl (Aricept -) 5 mg GT DAILY [facility] Last Admin: 07/20/20 11:16 Dose: 5 mg Documented by: Famotidine (Pepcid -) 20 mg PEG DAILY [facility] Last Admin: 07/20/20 11:16 Dose: 20 mg Documented by: Sodium Chloride (Normal Saline -) 1,000 mls @ 7 mls/hr IV ASDIR [facility] Last Admin: 07/21/20 06:00 Dose: Not Given Documented by: Levothyroxine Sodium (Synthroid -) 50 mcg GT DAILY@0700 [facility] Last Admin: 07/21/20 06:02 Dose: 50 mcg Documented by: Risperidone (Risperdal -) 0.5 mg GT TID [facility] Last Admin: 07/21/20 06:02 Dose: 0.5 mg Documented by: PHYSICAL EXAMINATION Vital Signs Period Temp Pulse Resp BP Sys/[place] Pulse Ox Last 24 Hr 97.1 F-98.5 F 77-92 16-20 105-141/62-81 95-100 GENERAL: Awake, alert, and fully oriented, in no acute distress. HEAD: Normal with no signs of trauma. EYES: Pupils equal, round and reactive to light, extraocular movements intact, sclera anicteric, conjunctiva clear. No lid lag. NECK: Normal range of motion, right submandibular cyst with black comedone LUNGS: Breath sounds equal, clear to auscultation bilaterally. No wheezes, and no crackles. No accessory muscle use. HEART: Regular rate and rhythm, normal S1 and S2 without murmur, rub or gallop. ABDOMEN: Soft, nontender, mildly distended, normoactive bowel sounds, no guarding, no rebound, no masses. No hepatomegaly or splenomegaly. Peg tube insertion normal in appearance LOWER EXTREMITIES: 2+ pulses, warm, well-perfused. No calf tenderness. No peripheral edema. NEUROLOGICAL: CN appear intact, strength equal bilaterally and symmetric, sensory intact light touch CBCD WBC 6.6 K/mm3 (4.0-10.0) 07/19/20 05:35 RBC 4.42 M/mm3 (4.00-5.60) 07/19/20 05:35 Hgb 14.5 GM/dL (11.7-16.9) 07/19/20 05:35 Hct 41.4 % (35.4-49) 07/19/20 05:35 MCV 93.7 fl (80-96) 07/19/20 05:35 MCHC 34.9 g/dl (32.0-35.9) 07/19/20 05:35 RDW 13.0 % (11.9-15.9) 07/19/20 05:35 Plt Count 207 K/MM3 (134-434) 07/19/20 05:35 MPV 9.6 fl (7.5-11.1) 07/19/20 05:35 CMP Sodium 140 mmol/L (136-145) 07/19/20 05:35 Potassium 3.9 mmol/L (3.5-5.1) 07/19/20 05:35 Chloride 106 mmol/L (98-107) 07/19/20 05:35 Carbon Dioxide 28 mmol/L (21-32) 07/19/20 05:35 Anion Gap 7 MMOL/L (8-16) L 07/19/20 05:35 BUN 19.7 mg/dL (7-18) H 07/19/20 05:35 Creatinine 0.8 mg/dL (0.55-1.3) 07/19/20 05:35 Random Glucose 92 mg/dL (74-106) 07/19/20 05:35 Calcium 9.1 mg/dL (8.5-10.1) 07/19/20 05:35 Total Bilirubin 0.8 mg/dL (0.2-1) 07/19/20 05:35 AST 21 U/L (15-37) 07/19/20 05:35 ALT 33 U/L (13-61) 07/19/20 05:35 Alkaline Phosphatase 92 U/L (45-117) 07/19/20 05:35 Total Protein 7.2 g/dl (6.4-8.2) 07/19/20 05:35 Albumin 3.3 g/dl (3.4-5.0) L 07/19/20 05:35 CARDIAC ENZYMES Creatine Kinase 38 U/L (26-308) 07/19/20 00:09 Troponin I < 0.02 ng/ml (0.00-0.05) 07/19/20 00:09 ASSESSMENT/PLAN: Mr. Carter (nonverbal at BL) is a 80M w a h/o alzheimers dementia, PEG tube insertion, and hypothyroidism. The patient is a resident of [facility]. On day of admission he was seen sitting up in bed at 7 PM and found on the ground 2 hours later. The patient was brought in by ambulance and a limited history was obtained in the ED. During interview the patient was capable of mimicking arm movements but inatentive to further direction and nonverbal. The patient was comfortable and does not appear to be in any acute distress. The patient did not appear to have facial droop and the patient has an NIH stroke scale of 2. CT of C-spine reviewed and showed mild degenerative arthritis with no fracture or acute pathology. Head CT performed and demonstrated no acute intracranial pathology. though ER resident overnight discussed dense MCA signal reportedly on CT. Patient without apparent deficits and I recommended having MRI of the brain completed which did not show acute CVA. Continue donepezil for dementia. Monitor blood pressure, maintain normotensive range. Monitor hypothyroidism, continue levothyroxine. Daily ASA 81mg recommended. Fall precautions. Physical therapy as tolerated.
[2020-07-21] MEDS: DONEPEZIL HCL 5 MG TABLET (FP) GT SCH (09:30)
[2020-07-21] MEDS: BACLOFEN 10 MG TABLET (FP) GT SCH (09:30)
[2020-07-21] MEDS: FAMOTIDINE 20 MG TABLET PEG SCH (09:30)
--- NOTE | 2020-07-21 11:27 | DS ---
Physical Examination Vital Signs: Vital Signs Temperature 98 F 07/21/20 09:45 Pulse Rate 75 07/21/20 09:45 Respiratory Rate 20 07/21/20 09:45 Blood Pressure 113/71 07/21/20 09:45 O2 Sat by Pulse Oximetry (%) 98 07/21/20 09:45 Findings/Remarks: Pt seen/ examined chart reviewed comfortable afebrile Constitutional: Yes: No Distress Neck: Yes: Supple Cardiovascular: Yes: Regular Rate and Rhythm Respiratory: Yes: Diminished Gastrointestinal: Yes: Soft, Other (S/P g tube) Edema: No Neurological: Yes: Other (awake) Labs: CBC, BMP 07/19/20 05:35 07/19/20 05:35 Discharge Summary Problems reviewed: Yes Reason For Visit: DEMENTIA,FALL, CEREBROVASCULAR ACCIDENT (CVA) Current Active Problems Dementia (Acute) Fall (Acute) Hospital Course: s/p fall dementia Hypothyroidism -- CT head negative as well as MRI -- Neurology eval noted -- resumed GT feeds -- --COVID pending -- will dc to [facility] today --meds reconcilled d/w nursing staff also Condition: Fair - Instructions Referrals: Parish Gonzalez MD [Primary Care Provider] - - Home Medications Comprehensive Discharge Medication List: Ambulatory Orders Ascorbate Calcium [Vitamin C] 500 mg GT DAILY 02/12/18 Baclofen 10 mg GT DAILY 02/12/18 Donepezil HCl 5 mg GT DAILY 02/12/18 Famotidine 20 mg GT DAILY 02/12/18 Levothyroxine [Synthroid -] 50 mcg GT DAILY 02/12/18 Risperidone 0.5 mg GT HS 02/12/18 Acetaminophen Liquid [Tylenol 100mg/mL * Drops* -] 20 mg PO QID MDD 80 04/19/20 Heparin - 5,000 unit SQ BID 04/19/20 [place]-3/Dha/Epa/Dpa/Fish Oil [[place]-3 1,050 mg Softgel] 1 each PO BID 04/19/20 Polyethylene Glycol 3350 [Miralax 119 gm Btl -] 17 gm PO DAILY 04/19/20
[2020-07-21 15:04] VITALS: BP 106/74; PULSE 93; TEMP 97.9
== END 2020-07-21 18:16 | DRG 42 ==
LOC: JER 22:26 → JERBED 07-19 01:33 → J4S 07-19 20:56
PROVIDERS: ADMIT Hospitalist; ATTEND Internal Medicine
DX: G30.9 Alzheimer's disease, unspecified (principal); E03.9 Hypothyroidism, unspecified; F02.80 Dementia in other diseases classified elsewhere, unspecified severity, without behavioral disturbance, psychotic disturbance, mood disturbance, and anxiety; G47.00 Insomnia, unspecified; W19.XXXA Unspecified fall, initial encounter
CPT/HCPCS: 36415; 70450-TC; 70551-TC; 71045-TC-FY; 72125-TC; 80053; 82550; 83735; 84100; 84484; 85025; 85610; 85730; 86850; 86900; 86901; 93005; 93010; 97116-GP; 97161-GP; 99285-25; J0131; J0475; U0003

== ENCOUNTER 2020-07-26 12:25 | Emergency (ER) | payer OTHER ==
[2020-07-26 12:29] VITALS: BMI 24.3
--- NOTE | 2020-07-26 13:08 | PDOC ---
History of Present Illness - General Chief Complaint: Injury Stated Complaint: FALL Time Seen by Provider: 07/26/20 13:08 History Source: Group Home Records - History of Present Illness Initial Comments: Pt is a 80 yo M, with PMH of Alzheimer's disease (non-verbal at baseline), PUD, TBI, PEG tube, who is presenting via EMS from the [facility] after an unwitnessed fall. Per CT records, pt was "found on the floor next to his bed, and was pointing to his head to show pain". Pt is otherwise at his baseline per records. Pt points to his head when I ask if he has pain, but otherwise cannot provide ROS. Allergies: NKDA PCP: Dr. Charlee Hawk Social: Pt denies any cigarette, alcohol, or drug use. Pt denies any recent travel or sick contacts. Surgical: PEG tube Family: no relevant history. 07/26/20 13:38 Past History - Travel History Traveled outside of the country in the last 30 days: No Close contact w/someone who was outside of country & ill: No - Medical History Allergies/Adverse Reactions: Allergies Allergy/AdvReac Type Severity Reaction Status Date / Time No Known Allergies Allergy Verified 07/18/20 22:42 Home Medications: Ambulatory Orders Ascorbate Calcium [Vitamin C] 500 mg GT DAILY 02/12/18 Baclofen 10 mg GT DAILY 02/12/18 Donepezil HCl 5 mg GT DAILY 02/12/18 Famotidine 20 mg GT DAILY 02/12/18 Levothyroxine [Synthroid -] 50 mcg GT DAILY 02/12/18 Risperidone 0.5 mg GT HS 02/12/18 Acetaminophen Liquid [Tylenol 100mg/mL * Drops* -] 20 mg PO QID MDD 80 04/19/20 Heparin - 5,000 unit SQ BID 04/19/20 [place]-3/Dha/Epa/Dpa/Fish Oil [[place]-3 1,050 mg Softgel] 1 each PO BID 04/19/20 Polyethylene Glycol 3350 [Miralax 119 gm Btl -] 17 gm PO DAILY 04/19/20 Menthol/Zinc Oxide [Calmoseptine Ointment] 71 gm TP TID 07/26/20 Anemia: No Asthma: No Cancer: No Cardiac Disorders: No CVA: No COPD: No CHF: No Dementia: Yes Diabetes: No GI Disorders: No Disorders: Yes HTN: No Hypercholesterolemia: No Liver Disease: No Seizures: No Thyroid Disease: Yes (HYPO) - Surgical History Abdominal Surgery: No Appendectomy: No Cardiac Surgery: No Cholecystectomy: No Lung Surgery: No Neurologic Surgery: No Orthopedic Surgery: No - Psycho-Social/Smoking History Smoking History: Smoker current status UNK Have you smoked in the past 12 months: No Information on smoking cessation initiated: No - Substance Abuse Hx (Audit-C & DAST Scrn) How often the patient has a drink containing alcohol: Never Score: In Men: 4 or > Positive; In Women: 3 or > Positive: 0 Screen Result (Pos requires Nsg. Audit-10AR): Negative In the last yr the pt used illegal drug/Rx for NonMed reason: No Score: Yes response is considered Positive: 0 Screen Result (Positive result requires Nsg. DAST-10): Negative Review of Systems - Review of Systems Able to Perform ROS?: No (non-verbal) *Physical Exam - Vital Signs Last Vital Signs Temp Pulse Resp BP Pulse Ox 64.5 F L 77 18 111/75 96 07/26/20 12:27 07/26/20 12:27 07/26/20 12:27 07/26/20 12:27 07/26/20 12:27 - Physical Exam Vitals stable, pt afebrile. Pt in NAD, normal body habitus. Pt alert. Follows all basic commands and makes eye contact. hospital education coordinator generally intact, muscular strength and sensation intact in all extremities. No midline spinal step-offs or crepitus. Head normocephalic, atraumatic. No abrasions or contusions noted. Eyes PERRLA, EOMI. Oropharynx without erythema or exudates, no LAD b/l. No nasal congestion. Hearing intact. Clear heart sounds, S1/S2, no JVD, b/l pedal edema, or heart murmur. Clear lung sounds, no respiratory distress, wheezes, crackles, or accessory muscle use. No abdominal or CVA tenderness to palpation, no rebound, no guarding. Abdomen soft, non-distended, and with normoactive bowel sounds. PEG tube in place. Skin without jaundice or rash. Scattered ecchymoses on abdomen and extremities. 07/26/20 13:42 Medical Decision Making - Medical Decision Making Pt was seen at bedside, also will be seen by attending Dr. Kim. Pt presenting after a fall. Pt recently seen in ER for similar with negative MRI/MRA. Pt had labs completed yesterday from CT which were WNL. Will evaluate with CTH and C-spine to evaluate for fractures or bleeds. X-rays of chest and pelvis. 07/26/20 13:44 CTH and C-spine without acute pathology. 07/26/20 15:18 X-ray of R hip concerning for deformity (acute vs chronic R femoral neck fracture vs arthritis) Will evaluate with non-contrast pelvis CT 07/26/20 15:34 CT pelvis with no acute pathology or evidence of fracture. Pt safe for d/c to [facility]. 07/26/20 17:31 Discharge - Discharge Information Problems reviewed: Yes Clinical Impression/Diagnosis: Fall Qualifiers: Encounter type: initial encounter Qualified Code(s): W19.XXXA - Unspecified fall, initial encounter Condition: Good Disposition: [facility] - Admission No - Follow up/Referral Referrals: Parish Gonzalez MD [Primary Care Provider] - - Patient Discharge Instructions Patient Printed Discharge Instructions: How to Prevent Falls, DI for Closed Head Injury Additional Instructions: You were seen in the ER today after an unwitnessed fall. The results of your imaging today were at your baseline. Please follow-up with your primary care doctor within 1-2 days to discuss your visit and make sure your symptoms have improved. Please return to the ER if you have any worsening pain, development of fevers or chills, loss of consciousness, inability to tolerate food or fluids, or any other concerns. - Post Discharge Activity
--- NOTE | 2020-07-26 14:45 | PDOC ---
Documentation entered by Unique Boyd SCRIBE, acting as scribe for Martha Kim MD. Martha Kim MD: This documentation has been prepared by the Oliver petty Xhesika, SCRIBE, under my direction and personally reviewed by me in its entirety. I confirm that the documentation accurately reflects all work, treatment, procedures, and medical decision making performed by me. Attending Attestation - Resident Resident Name: AichaRamona - ED Attending Attestation I have performed the following: I have examined & evaluated the patient, The case was reviewed & discussed with the resident, I agree w/resident's findings & plan, Exceptions are as noted - HPI HPI: 07/26/20 13:09 The patient is a 80 year old male with a sign PMH of Alzheimers/dementia, PEG tube, hypothyroidism who presents to the ED [facility] from [facility] after being found on the floor. Pt was seen here in the ED on 07/18/20 for similar complaints. Patient is nonverbal at baseline, and unable to contribute to further history. Allergies:NKDA PCP: Parish Segura - Physicial Exam PE: 07/26/20 14:42 General: well appearing HEENT: NCAT Neck: FROM, supple, no midline tenderness Extremities: warm and well perfused, flexion/extension at knees and hips intact b/l Back: no midline tenderness Neuro: awake, alert, nonverbal (basline), able to follow simple commands - Medical Decision Making 07/26/20 14:44 80 yo M with supposed fall, unremarkable physical exam however given patient non-verbal and age will r/o acute traumatic intracranial injury as well as pelgvic/hip fx. Plan: -CT head -CT c-spine -cxr -pelvis xray -reassess, if imaging unremarkable will d/c with return precautions, recommend PMD f/u This clinical encounter is taking place during a federal and state health care emergency attributable to the novel [place] Virus pandemic. The Material Attendant of the Department of Health and Human Services has declared, pursuant to the Public Health Service Act 319F-3 (42 U.S.C. 247d-6d), that a covered persons activities related to medical countermeasures against COVID-19 will be immune from liability under Federal and State law. Discharge - Discharge Information Problems reviewed: Yes Clinical Impression/Diagnosis: Fall Qualifiers: Encounter type: initial encounter Qualified Code(s): W19.XXXA - Unspecified fall, initial encounter Condition: Good [facility]position: [facility] - Follow up/Referral Referrals: Parish Gonzalez MD [Primary Care Provider] - - Patient Discharge Instructions Patient Printed Discharge Instructions: How to Prevent Falls, DI for Closed Head Injury Additional Instructions: You were seen in the ER today after an unwitnessed fall. The results of your imaging today were at your baseline. Please follow-up with your primary care doctor within 1-2 days to discuss your visit and make sure your symptoms have improved. Please return to the ER if you have any worsening pain, development of fevers or chills, loss of consciousness, inability to tolerate food or fluids, or any other concerns. - Post Discharge Activity
[2020-07-26 18:58] VITALS: BP 117/90; PULSE 72; TEMP 98.6
== END 2020-07-26 23:30 ==
LOC: JER 12:25
DX: S09.90XA Unspecified injury of head, initial encounter (principal)
CPT/HCPCS: 70450-TC; 71045-TC-FY; 72125-TC; 72170-TC-FY; 72192-TC; 99285-25

== ENCOUNTER 2020-09-20 05:12 | Emergency (ER) | payer SELFPAY ==
[2020-09-20 05:35] VITALS: BP 98/71; PULSE 73; TEMP 98.6; BMI 24.4
== END 2020-09-20 06:43 | disposition home or self-care (01) ==
LOC: JER 05:12
DX: K94.23 Gastrostomy malfunction (principal)
CPT/HCPCS: 99283-25

== ENCOUNTER 2020-09-21 09:21 | Emergency (ER) | payer SELFPAY ==
[2020-09-21 09:31] VITALS: TEMP 98.3; BMI 27.3
[2020-09-21 11:52] VITALS: BP 105/81; PULSE 72
== END 2020-09-21 12:10 ==
LOC: JER 09:21
DX: K94.23 Gastrostomy malfunction (principal)
CPT/HCPCS: 74018-TC-FY; 99284-25

== ENCOUNTER 2021-01-02 16:55 | Inpatient (IN) | payer OTHER ==
[2021-01-02] MEDS ORDERED: SODIUM CHLORIDE 1,000 ML IV STA (17:27)
[2021-01-02] MEDS ORDERED: ACETAMINOPHEN 1000 MG/100 ML VIAL (NON FORMULARY) IVPB ONE ×2 (17:27→19:57)
[2021-01-02] MEDS ORDERED: LACTATED RINGERS SOLUTION 1000 ML INFUS.BAG IV STA (17:28)
[2021-01-02] MEDS ORDERED: ACETAMINOPHEN INJECTION 100 ML IVPB ONE ×2 (18:07→21:21)
[2021-01-02 18:32] LABS: HEMATOCRIT 43.2 % (35.4-49); HEMOGLOBIN 14.7 GM/dL (11.7-16.9); LYMPH % 3.9 % (8-40); MEAN CELL VOLUME 94.2 fl (80-96); MEAN PLT VOLUME 9.9 fl (7.5-11.1); NEUT % 92.1 % (42.8-82.8); PLATELET COUNT 236 K/MM3 (134-434); RBC 4.59 M/mm3 (4.00-5.60); RDW 13.1 % (11.9-15.9); WHITE BLOOD COUNT 18.3 K/mm3 (4.0-10.0)
[2021-01-02] MEDS ORDERED: PIPERACILLIN/TAZOB 3.375 GM 3.375 GM in DEXTROSE 5%-WATER - 50 ML IVPB ONE (18:37)
[2021-01-02] MEDS ORDERED: VANCOMYCIN 1,000 MG in DEXTROSE 5%-WATER - 250 ML IVPB ONE (18:37)
[2021-01-02 18:38] LABS: INR 1.13 (0.83-1.09); PROTHROMBIN TIME (PATIENT) 13.8 SEC (9.7-13.0)
[2021-01-02 18:41] LABS: CHLORIDE 111 mmol/L (98-107); SODIUM 146 mmol/L (136-145)
[2021-01-02 18:42] LABS: ALBUMIN 3.4 g/dl (3.4-5.0); ANION GAP 7 MMOL/L (8-16); BLOOD UREA NITROGEN 34.1 mg/dL (7-18); CALCIUM 9.8 mg/dL (8.5-10.1); CO2 28 mmol/L (21-32); GLUCOSE,RANDOM 154 mg/dL (74-106)
[2021-01-02 18:43] LABS: EPI CELLS 7 /uL (0-25.1); HYALINE CASTS 3 /uL (0-3.1); PH,URINE 5.5 (5.0-8.0); URINE APPEARANCE CLEAR; URINE BILIRUBIN NEGATIVE (NEGATIVE); URINE COLOR DK YELLOW; URINE GLUCOSE (UA) NEGATIVE (NEGATIVE); URINE KETONE TRACE (NEGATIVE); URINE LEUK ESTERASE NEGATIVE (NEGATIVE); URINE NITRITE POSITIVE (NEGATIVE); URINE PROTEIN 2+ (NEGATIVE); URINE RBC 20 /uL (0-23.9); URINE WBC 6 /uL (0-25.8)
[2021-01-02 18:44] LABS: SGOT/AST 30 U/L (15-37); SGPT/ALT 49 U/L (13-61)
[2021-01-02 18:47] LABS: BILIRUBIN,TOTAL 1.4 mg/dL (0.2-1); TOT PROT 7.9 g/dl (6.4-8.2)
[2021-01-02] MEDS ORDERED: PIPERACILLIN/TAZOB 3.375 GM 3.375 GM/50 ML BAG IVPB ONE (18:47)
[2021-01-02 18:48] LABS: ALK PHOS 94 U/L (45-117)
[2021-01-02 19:59] LABS: ANISOCYTOSIS 0; MACROCYTOSIS 0; PLATELET ESTIMATE NORMAL
[2021-01-02 20:23] LABS: URINE BACTERIA 16.2 /uL (0-1359)
[2021-01-02] MEDS: SODIUM CHLORIDE 0.45% 1,000 ML IV SCH ×2 (20:36→23:38)
[2021-01-02] MEDS ORDERED: ENOXAPARIN NA (PORCINE) 40 MG/0.4 ML DISP.SYRIN SQ ONE (20:49)
[2021-01-02] MEDS: ENOXAPARIN NA (PORCINE) 40 MG/0.4 ML DISP.SYRIN SQ SCH (20:52)
[2021-01-03] MEDS ORDERED: PIPERACILLIN/TAZOBACTAM 3.375 GM VIAL IVPB ONE ×3 (01:46→17:03)
[2021-01-03] MEDS ORDERED: DEXTROSE 5%-WATER - 50 ML IVPB ONE ×3 (01:47→17:03)
[2021-01-03] MEDS ORDERED: PIPERACILLIN/TAZOB 3.375 GM 3.375 GM in DEXTROSE 5%-WATER - 50 ML IVPB SCH (02:00)
[2021-01-03] MEDS: PIPERACILLIN/TAZOB 3.375 GM 3.375 GM in DEXTROSE 5%-WATER - 50 ML IVPB SCH ×3 (02:07→17:08)
[2021-01-03 02:43] VITALS: BMI 24.3
[2021-01-03] MEDS ORDERED: ALBUTEROL SO4 2.5/IPRATROPIUM 0.5 INH SOL 3 ML VIAL.NEB. NEB ONE (03:40)
[2021-01-03 05:03] LABS: BLOOD UREA NITROGEN 34.8 mg/dL (7-18); CALCIUM 8.9 mg/dL (8.5-10.1)
[2021-01-03 05:07] LABS: CREATININE 1.1 mg/dL (0.55-1.3)
[2021-01-03] MEDS: KCL 10 MEQ IVPB 10 MEQ/100 ML INFUS.BAG IVPB SCH ×2 (05:40→07:57)
[2021-01-03] MEDS ORDERED: POTASSIUM CHLORIDE ORAL LIQUID 20 MEQ/15 ML GT ONE (09:04)
[2021-01-03] MEDS ORDERED: VANCOMYCIN 1 GM in D5W (PRE-DOCKED) 1,000 MG/250 ML IVPB SCH (10:00)
[2021-01-03] MEDS ORDERED: FLU VACCINE (FLULAVAL) PF 60 MCG/0.5 ML SYRINGE 2020-2021 IM ONE (10:00)
[2021-01-03 10:12] LABS: BASO % 0.2 % (0-2.0); EOS % 0.8 % (0-4.5); HEMATOCRIT 36.3 % (35.4-49); HEMOGLOBIN 12.4 GM/dL (11.7-16.9); MCH 32.4 pg (25.7-33.7); MCHC 34.3 g/dl (32.0-35.9); MEAN CELL VOLUME 94.4 fl (80-96); MEAN PLT VOLUME 9.5 fl (7.5-11.1); MONO % 5.7 % (3.8-10.2); NEUT % 83.3 % (42.8-82.8); PLATELET COUNT 188 K/MM3 (134-434); RBC 3.84 M/mm3 (4.00-5.60); RDW 13.1 % (11.9-15.9); WHITE BLOOD COUNT 11.4 K/mm3 (4.0-10.0)
[2021-01-03] MEDS: ENOXAPARIN NA (PORCINE) 40 MG/0.4 ML DISP.SYRIN SQ SCH (10:22)
[2021-01-03 11:17] LABS: ALBUMIN 2.8 g/dl (3.4-5.0); BLOOD UREA NITROGEN 31.1 mg/dL (7-18)
[2021-01-03 11:20] LABS: CREATININE 0.8 mg/dL (0.55-1.3)
[2021-01-03 11:22] LABS: BILIRUBIN,TOTAL 1.6 mg/dL (0.2-1); TOT PROT 6.6 g/dl (6.4-8.2)
[2021-01-03 11:32] LABS: CALCIUM 8.5 mg/dL (8.5-10.1)
[2021-01-03] MEDS ORDERED: VANCOMYCIN 1 GRAM (PRE-DOCKED) 1,000 MG/250 ML BAG IVPB ONE (18:00)
[2021-01-03] MEDS: SODIUM CHLORIDE 0.45% 1,000 ML IV SCH (22:00)
[2021-01-03] MEDS: risperiDONE 0.5 MG TABLET GT SCH (22:00)
[2021-01-04] MEDS ORDERED: PIPERACILLIN/TAZOBACTAM 3.375 GM VIAL IVPB ONE ×4 (01:21→17:46)
[2021-01-04] MEDS ORDERED: DEXTROSE 5%-WATER - 50 ML IVPB ONE ×3 (01:21→17:47)
[2021-01-04] MEDS: PIPERACILLIN/TAZOB 3.375 GM 3.375 GM in DEXTROSE 5%-WATER - 50 ML IVPB SCH ×3 (01:28→18:35)
[2021-01-04] MEDS ORDERED: LEVOTHYROXINE NA 50 MCG TABLET (FP) GT SCH (10:00)
[2021-01-04] MEDS: ENOXAPARIN NA (PORCINE) 40 MG/0.4 ML DISP.SYRIN SQ SCH (10:01)
[2021-01-04] MEDS: FAMOTIDINE 40 MG/5 ML ORAL SUSPENSION PEG SCH (10:01)
[2021-01-04] MEDS: LEVOTHYROXINE NA 25 MCG TABLET (FP) GT SCH (10:01)
[2021-01-04] MEDS: SODIUM CHLORIDE 0.45% 1,000 ML IV SCH (20:00)
[2021-01-04] MEDS: risperiDONE 0.5 MG TABLET GT SCH (21:07)
[2021-01-05] MEDS ORDERED: DEXTROSE 5%-WATER - 50 ML IVPB ONE ×3 (01:13→18:05)
[2021-01-05] MEDS ORDERED: PIPERACILLIN/TAZOBACTAM 3.375 GM VIAL IVPB ONE ×3 (01:13→18:05)
[2021-01-05] MEDS: PIPERACILLIN/TAZOB 3.375 GM 3.375 GM in DEXTROSE 5%-WATER - 50 ML IVPB SCH ×3 (01:25→18:27)
[2021-01-05] MEDS: FAMOTIDINE 40 MG/5 ML ORAL SUSPENSION PEG SCH (10:38)
[2021-01-05] MEDS: ENOXAPARIN NA (PORCINE) 40 MG/0.4 ML DISP.SYRIN SQ SCH (10:39)
[2021-01-05] MEDS: LEVOTHYROXINE NA 25 MCG TABLET (FP) GT SCH (10:39)
[2021-01-05] MEDS: risperiDONE 0.5 MG TABLET GT SCH (21:24)
[2021-01-05] MEDS: SODIUM CHLORIDE 0.45% 1,000 ML IV SCH (21:24)
[2021-01-06] MEDS ORDERED: DEXTROSE 5%-WATER - 50 ML IVPB ONE ×3 (01:16→17:14)
[2021-01-06] MEDS ORDERED: PIPERACILLIN/TAZOBACTAM 3.375 GM VIAL IVPB ONE ×3 (01:16→17:13)
[2021-01-06] MEDS: PIPERACILLIN/TAZOB 3.375 GM 3.375 GM in DEXTROSE 5%-WATER - 50 ML IVPB SCH ×3 (01:22→17:22)
[2021-01-06] MEDS: SODIUM CHLORIDE 0.45% 1,000 ML IV SCH ×3 (02:27→21:45)
[2021-01-06] MEDS ORDERED: PT OWN MED DRAWER 7, Y5N ONE ×2 (09:55→11:21)
[2021-01-06] MEDS: ENOXAPARIN NA (PORCINE) 40 MG/0.4 ML DISP.SYRIN SQ SCH (10:01)
[2021-01-06] MEDS: LEVOTHYROXINE NA 25 MCG TABLET (FP) GT SCH (10:02)
[2021-01-06] MEDS: FAMOTIDINE 40 MG/5 ML ORAL SUSPENSION PEG SCH (12:04)
[2021-01-06] MEDS: risperiDONE 0.5 MG TABLET GT SCH (21:45)
[2021-01-07] MEDS ORDERED: DEXTROSE 5%-WATER - 50 ML IVPB ONE ×3 (03:06→17:44)
[2021-01-07] MEDS ORDERED: PIPERACILLIN/TAZOBACTAM 3.375 GM VIAL IVPB ONE ×3 (03:06→17:43)
[2021-01-07] MEDS: PIPERACILLIN/TAZOB 3.375 GM 3.375 GM in DEXTROSE 5%-WATER - 50 ML IVPB SCH ×3 (03:07→17:59)
[2021-01-07] MEDS: SODIUM CHLORIDE 0.45% 1,000 ML IV SCH ×3 (03:09→20:30)
[2021-01-07] MEDS: FAMOTIDINE 40 MG/5 ML ORAL SUSPENSION PEG SCH (09:04)
[2021-01-07] MEDS: LEVOTHYROXINE NA 25 MCG TABLET (FP) GT SCH (09:05)
[2021-01-07] MEDS: ENOXAPARIN NA (PORCINE) 40 MG/0.4 ML DISP.SYRIN SQ SCH (09:05)
[2021-01-07] MEDS: risperiDONE 0.5 MG TABLET GT SCH (21:58)
[2021-01-08] MEDS ORDERED: PIPERACILLIN/TAZOBACTAM 3.375 GM VIAL IVPB ONE ×3 (00:55→17:37)
[2021-01-08] MEDS ORDERED: DEXTROSE 5%-WATER - 50 ML IVPB ONE ×3 (00:55→17:37)
[2021-01-08] MEDS: SODIUM CHLORIDE 0.45% 1,000 ML IV SCH (01:11)
[2021-01-08] MEDS: PIPERACILLIN/TAZOB 3.375 GM 3.375 GM in DEXTROSE 5%-WATER - 50 ML IVPB SCH ×2 (01:12→09:51)
[2021-01-08 09:09] LABS: HEMATOCRIT 34.5 % (35.4-49); HEMOGLOBIN 11.9 GM/dL (11.7-16.9); MCH 32.2 pg (25.7-33.7); MCHC 34.4 g/dl (32.0-35.9); MEAN CELL VOLUME 93.8 fl (80-96); MEAN PLT VOLUME 9.1 fl (7.5-11.1); PLATELET COUNT 255 K/MM3 (134-434); RBC 3.68 M/mm3 (4.00-5.60); RDW 12.9 % (11.9-15.9)
[2021-01-08] MEDS ORDERED: PT OWN MED DRAWER 7, Y5N ONE (09:12)
[2021-01-08 09:47] LABS: CALCIUM 8.7 mg/dL (8.5-10.1)
[2021-01-08 09:48] LABS: ALBUMIN 2.5 g/dl (3.4-5.0); BLOOD UREA NITROGEN 10.4 mg/dL (7-18)
[2021-01-08] MEDS: LEVOTHYROXINE NA 25 MCG TABLET (FP) GT SCH (09:48)
[2021-01-08] MEDS: ENOXAPARIN NA (PORCINE) 40 MG/0.4 ML DISP.SYRIN SQ SCH (09:48)
[2021-01-08] MEDS: FAMOTIDINE 40 MG/5 ML ORAL SUSPENSION PEG SCH (09:49)
[2021-01-08 09:51] LABS: CREATININE 0.8 mg/dL (0.55-1.3)
[2021-01-08 09:52] LABS: BILIRUBIN,TOTAL 0.8 mg/dL (0.2-1); TOT PROT 6.4 g/dl (6.4-8.2)
[2021-01-08 16:12] VITALS: BP 149/89; PULSE 90; TEMP 98.7
== END 2021-01-08 19:01 | DRG 871 ==
LOC: JER 16:55 → JERBED 19:11 → J4W 23:58 → J4S 01-06 06:14 → J4W 01-06 06:16
PROVIDERS: ADMIT Hospitalist; ATTEND Internal Medicine
PROC: 3E0H76Z Introduction of Nutritional Substance into Lower GI, Via Natural or Artificial Opening (ICD-10-PCS; principal; 2021-01-02)
DX: A41.9 Sepsis, unspecified organism (principal); J18.9 Pneumonia, unspecified organism; N39.0 Urinary tract infection, site not specified; E87.0 Hyperosmolality and hypernatremia; G30.9 Alzheimer's disease, unspecified; F02.80 Dementia in other diseases classified elsewhere, unspecified severity, without behavioral disturbance, psychotic disturbance, mood disturbance, and anxiety; R09.02 Hypoxemia; E03.9 Hypothyroidism, unspecified
CPT/HCPCS: 36415; 70450-TC; 71045-TC-FY; 80048; 80053; 81003; 83605; 83735; 84439; 84443; 84484; 85025; 85027; 85610; 85730; 87040; 87086; 87804; 93005; 93010; 93306-TC; 99285-25; C9803; G0008; G0480; J0131; Q2036; U0003

== ENCOUNTER 2021-02-20 15:47 | Inpatient (IN) | payer OTHER ==
[2021-02-20 16:33] VITALS: BMI 24.1
[2021-02-20] MEDS ORDERED: PANTOPRAZOLE SODIUM 40 MG VIAL IVPUSH ONE (16:43)
[2021-02-20] MEDS ORDERED: PANTOPRAZOLE SODIUM 40 MG VIAL ONE (16:46)
[2021-02-20 17:26] LABS: INR 1.03 (0.83-1.09); PROTHROMBIN TIME (PATIENT) 12.4 SEC (9.7-13.0)
[2021-02-20 17:29] LABS: ACTIVATED PTT 29.1 SECONDS (25.2-36.5)
[2021-02-20 17:31] LABS: VENOUS BASE EXCESS -0.2 mmol/L (-2-2); VENOUS O2 SATURATION 95.6 % (70-80); VENOUS PCO2 46.4 mmHg (38-52); VENOUS PH 7.362 (7.310-7.410)
[2021-02-20 17:33] LABS: BASO % 5.6 % (0-2.0); EOS % 0.1 % (0-4.5); HEMOGLOBIN 15.8 GM/dL (11.7-16.9); LYMPH % 2.7 % (8-40); MCH 31.2 pg (25.7-33.7); MCHC 33.6 g/dl (32.0-35.9); MEAN PLT VOLUME 10.4 fl (7.5-11.1); MONO % 2.7 % (3.8-10.2); NEUT % 88.9 % (42.8-82.8); PLATELET COUNT 270 K/MM3 (134-434); RBC 5.05 M/mm3 (4.00-5.60); RDW 13.9 % (11.9-15.9); WHITE BLOOD COUNT 18.1 K/mm3 (4.0-10.0)
[2021-02-20 17:41] LABS: CHLORIDE 110 mmol/L (98-107); SODIUM 145 mmol/L (136-145)
[2021-02-20 17:43] LABS: ALBUMIN 3.6 g/dl (3.4-5.0); ANION GAP 8 MMOL/L (8-16); BLOOD UREA NITROGEN 32.3 mg/dL (7-18); CALCIUM 10.3 mg/dL (8.5-10.1); CO2 26 mmol/L (21-32); GLUCOSE,RANDOM 153 mg/dL (74-106)
[2021-02-20 17:47] LABS: CREATININE 0.9 mg/dL (0.55-1.3); SGOT/AST 33 U/L (15-37)
[2021-02-20 17:48] LABS: BILIRUBIN,TOTAL 0.7 mg/dL (0.2-1); LACTIC ACID 3.2 mmol/L (0.4-2.0)
[2021-02-20] MEDS ORDERED: VANCOMYCIN 1 GM in D5W (PRE-DOCKED) 1,000 MG/250 ML IVPB ONE (17:48)
[2021-02-20] MEDS ORDERED: PIPERACILLIN/TAZOB 4.5 GM 4.5 GM in DEXTROSE 5%-WATER 100 ML IVPB ONE (17:48)
[2021-02-20] MEDS ORDERED: SODIUM CHLORIDE 0.9% 500 ML INFUS.BAG IV ONE (17:48)
[2021-02-20 17:49] LABS: ALK PHOS 101 U/L (45-117)
[2021-02-20 17:53] LABS: SGPT/ALT 33 U/L (13-61)
[2021-02-20] MEDS ORDERED: PIPERACILLIN/TAZOB 4.5 GM 4.5 GM/100 ML BAG IVPB ONE (18:08)
[2021-02-20] MEDS ORDERED: VANCOMYCIN 1 GRAM (PRE-DOCKED) 1,000 MG/250 ML BAG IVPB ONE (18:08)
[2021-02-20 18:21] LABS: EPI CELLS 15 /uL (0-25.1); HYALINE CASTS 2 /uL (0-3.1); PH,URINE 5.5 (5.0-8.0); URINE APPEARANCE CLEAR; URINE BACTERIA 24 /uL (0-1359); URINE BILIRUBIN NEGATIVE (NEGATIVE); URINE COLOR DK YELLOW; URINE GLUCOSE (UA) NEGATIVE (NEGATIVE); URINE KETONE TRACE (NEGATIVE); URINE LEUK ESTERASE NEGATIVE (NEGATIVE); URINE NITRITE NEGATIVE (NEGATIVE); URINE PROTEIN 1+ (NEGATIVE); URINE UROBILINOGEN 0.2 mg/dL (0.2-1.0); URINE WBC 6 /uL (0-25.8)
[2021-02-20 19:13] LABS: OVALOCYTE 1+; PLATELET ESTIMATE ADEQUATE; ROULEAU 1+
[2021-02-21] MEDS ORDERED: PIPERACILLIN/TAZOB 4.5 GM 4.5 GM in DEXTROSE 5%-WATER 100 ML IVPB SCH (03:00)
[2021-02-21 03:57] LABS: LACTIC ACID 2.2 mmol/L (0.4-2.0)
[2021-02-21] MEDS: PIPERACILLIN/TAZOB 4.5 GM 4.5 GM in DEXTROSE 5%-WATER 100 ML IVPB SCH ×2 (07:23→10:30)
[2021-02-21 07:27] LABS: BASO % 0.1 % (0-2.0); HEMATOCRIT 41.5 % (35.4-49); LYMPH % 8.3 % (8-40); MCH 31.7 pg (25.7-33.7); MCHC 33.8 g/dl (32.0-35.9); MEAN CELL VOLUME 93.8 fl (80-96); MEAN PLT VOLUME 10.4 fl (7.5-11.1); MONO % 3.9 % (3.8-10.2); NEUT % 87.7 % (42.8-82.8); PLATELET COUNT 224 K/MM3 (134-434); RBC 4.43 M/mm3 (4.00-5.60); WHITE BLOOD COUNT 14.7 K/mm3 (4.0-10.0)
[2021-02-21 07:53] LABS: ALBUMIN 3.1 g/dl (3.4-5.0); BLOOD UREA NITROGEN 30.6 mg/dL (7-18); CALCIUM 9.2 mg/dL (8.5-10.1)
[2021-02-21 07:56] LABS: BILIRUBIN,TOTAL 1.4 mg/dL (0.2-1); CREATININE 0.9 mg/dL (0.55-1.3); TOT PROT 7.2 g/dl (6.4-8.2)
[2021-02-21] MEDS ORDERED: VANCOMYCIN 1,000 MG in DEXTROSE 5%-WATER - 250 ML IVPB SCH (10:00)
[2021-02-21] MEDS ORDERED: PIPERACILLIN/TAZOB 4.5 GM 4.5 GM/100 ML BAG IVPB ONE (10:31)
[2021-02-21] MEDS: DEXTROSE 5%-NORMAL SALINE 1,000 ML IV SCH (15:55)
[2021-02-21] MEDS ORDERED: PIPERACILLIN/TAZOBACTAM 3.375 GM VIAL IVPB ONE (18:02)
[2021-02-21] MEDS ORDERED: DEXTROSE 5%-WATER - 50 ML IVPB ONE (18:02)
[2021-02-21] MEDS: PIPERACILLIN/TAZOB 3.375 GM 3.375 GM in DEXTROSE 5%-WATER - 50 ML IVPB SCH (18:07)
[2021-02-21] MEDS: PANTOPRAZOLE SODIUM 40 MG VIAL IVPUSH SCH (21:50)
[2021-02-22] MEDS ORDERED: PIPERACILLIN/TAZOBACTAM 3.375 GM VIAL IVPB ONE ×4 (01:15→18:42)
[2021-02-22] MEDS ORDERED: DEXTROSE 5%-WATER - 50 ML IVPB ONE ×4 (01:15→18:42)
[2021-02-22] MEDS: PIPERACILLIN/TAZOB 3.375 GM 3.375 GM in DEXTROSE 5%-WATER - 50 ML IVPB SCH ×3 (01:17→18:45)
[2021-02-22] MEDS: PANTOPRAZOLE SODIUM 40 MG VIAL IVPUSH SCH ×2 (09:29→10:26)
[2021-02-22] MEDS: POLYETHYLENE GLYCOL 3350 119 GM BTL PO SCH (10:25)
[2021-02-22 14:06] LABS: BLOOD UREA NITROGEN 25.3 mg/dL (7-18); CALCIUM 8.3 mg/dL (8.5-10.1)
[2021-02-22 14:09] LABS: CREATININE 0.8 mg/dL (0.55-1.3)
[2021-02-22] MEDS: DEXTROSE 5%-NORMAL SALINE 1,000 ML IV SCH (17:13)
[2021-02-22] MEDS: DOCUSATE NA 100 MG/10 ML UNIT-DOSE CUPS PO SCH (22:50)
[2021-02-22] MEDS: SENNOSIDES 8.8 MG/5 ML BULK BOTTLE PO SCH (22:51)
[2021-02-23] MEDS ORDERED: PIPERACILLIN/TAZOBACTAM 3.375 GM VIAL IVPB ONE ×3 (01:04→18:17)
[2021-02-23] MEDS ORDERED: DEXTROSE 5%-WATER - 50 ML IVPB ONE ×3 (01:04→18:18)
[2021-02-23] MEDS: PIPERACILLIN/TAZOB 3.375 GM 3.375 GM in DEXTROSE 5%-WATER - 50 ML IVPB SCH ×3 (01:25→18:35)
[2021-02-23 07:34] LABS: HEMATOCRIT 38.6 % (35.4-49); HEMOGLOBIN 13.1 GM/dL (11.7-16.9); MCH 31.7 pg (25.7-33.7); MCHC 33.9 g/dl (32.0-35.9); MEAN CELL VOLUME 93.4 fl (80-96); MEAN PLT VOLUME 10.1 fl (7.5-11.1); PLATELET COUNT 229 K/MM3 (134-434); RBC 4.13 M/mm3 (4.00-5.60); RDW 13.7 % (11.9-15.9); WHITE BLOOD COUNT 8.9 K/mm3 (4.0-10.0)
[2021-02-23 08:00] LABS: ALBUMIN 2.8 g/dl (3.4-5.0); CALCIUM 8.2 mg/dL (8.5-10.1)
[2021-02-23 08:03] LABS: CREATININE 0.9 mg/dL (0.55-1.3)
[2021-02-23 08:04] LABS: BILIRUBIN,TOTAL 0.7 mg/dL (0.2-1); TOT PROT 6.7 g/dl (6.4-8.2)
[2021-02-23] MEDS: PANTOPRAZOLE SODIUM 40 MG VIAL IVPUSH SCH (10:49)
[2021-02-23] MEDS: POLYETHYLENE GLYCOL 3350 119 GM BTL PO SCH (10:50)
[2021-02-23] MEDS: SENNOSIDES 8.8 MG/5 ML BULK BOTTLE PO SCH (22:25)
[2021-02-23] MEDS: DOCUSATE NA 100 MG/10 ML UNIT-DOSE CUPS PO SCH (22:25)
[2021-02-24] MEDS ORDERED: PIPERACILLIN/TAZOBACTAM 3.375 GM VIAL IVPB ONE ×3 (00:52→17:22)
[2021-02-24] MEDS ORDERED: DEXTROSE 5%-WATER - 50 ML IVPB ONE ×3 (00:53→17:22)
[2021-02-24] MEDS: PIPERACILLIN/TAZOB 3.375 GM 3.375 GM in DEXTROSE 5%-WATER - 50 ML IVPB SCH ×3 (01:07→17:26)
[2021-02-24] MEDS: POLYETHYLENE GLYCOL 3350 119 GM BTL PO SCH (10:03)
[2021-02-24] MEDS: PANTOPRAZOLE SODIUM 40 MG VIAL IVPUSH SCH (10:03)
[2021-02-24] MEDS: DOCUSATE NA 100 MG/10 ML UNIT-DOSE CUPS PO SCH (21:02)
[2021-02-24] MEDS: SENNOSIDES 8.8 MG/5 ML BULK BOTTLE PO SCH (21:02)
[2021-02-25] MEDS ORDERED: PIPERACILLIN/TAZOBACTAM 3.375 GM VIAL IVPB ONE (01:00)
[2021-02-25] MEDS ORDERED: DEXTROSE 5%-WATER - 50 ML IVPB ONE (01:01)
[2021-02-25] MEDS: PIPERACILLIN/TAZOB 3.375 GM 3.375 GM in DEXTROSE 5%-WATER - 50 ML IVPB SCH (01:12)
[2021-02-25] MEDS: POLYETHYLENE GLYCOL 3350 119 GM BTL PO SCH (09:40)
[2021-02-25] MEDS: PANTOPRAZOLE SODIUM 40 MG VIAL IVPUSH SCH (09:40)
[2021-02-25] MEDS: SENNOSIDES 8.8 MG/5 ML BULK BOTTLE PO SCH (21:45)
[2021-02-25] MEDS: FAMOTIDINE 40 MG/5 ML ORAL SUSPENSION PO SCH (21:45)
[2021-02-25] MEDS: DOCUSATE NA 100 MG/10 ML UNIT-DOSE CUPS PO SCH (21:45)
[2021-02-26 06:40] LABS: BASO % 0.4 % (0-2.0); EOS % 6.5 % (0-4.5); HEMATOCRIT 36.6 % (35.4-49); HEMOGLOBIN 12.6 GM/dL (11.7-16.9); LYMPH % 21.6 % (8-40); MCH 32.2 pg (25.7-33.7); MCHC 34.5 g/dl (32.0-35.9); MEAN CELL VOLUME 93.3 fl (80-96); MEAN PLT VOLUME 9.6 fl (7.5-11.1); MONO % 5.6 % (3.8-10.2); NEUT % 65.9 % (42.8-82.8); PLATELET COUNT 218 K/MM3 (134-434); RBC 3.92 M/mm3 (4.00-5.60); RDW 13.5 % (11.9-15.9); WHITE BLOOD COUNT 5.4 K/mm3 (4.0-10.0)
[2021-02-26 07:01] LABS: ALBUMIN 2.6 g/dl (3.4-5.0); CALCIUM 7.9 mg/dL (8.5-10.1)
[2021-02-26 07:02] LABS: BLOOD UREA NITROGEN 22.7 mg/dL (7-18)
[2021-02-26 07:05] LABS: CREATININE 0.6 mg/dL (0.55-1.3)
[2021-02-26 07:06] LABS: BILIRUBIN,TOTAL 0.3 mg/dL (0.2-1); TOT PROT 6.1 g/dl (6.4-8.2)
[2021-02-26] MEDS: FAMOTIDINE 40 MG/5 ML ORAL SUSPENSION PO SCH ×2 (09:55→22:26)
[2021-02-26] MEDS: POLYETHYLENE GLYCOL 3350 119 GM BTL PO SCH (09:55)
[2021-02-26] MEDS: SENNOSIDES 8.8 MG/5 ML BULK BOTTLE PO SCH (22:25)
[2021-02-26] MEDS: DOCUSATE NA 100 MG/10 ML UNIT-DOSE CUPS PO SCH (22:26)
[2021-02-27 08:01] LABS: BASO % 0.3 % (0-2.0); EOS % 3.2 % (0-4.5); HEMATOCRIT 39.1 % (35.4-49); HEMOGLOBIN 13.5 GM/dL (11.7-16.9); LYMPH % 12.6 % (8-40); MCH 31.6 pg (25.7-33.7); MCHC 34.5 g/dl (32.0-35.9); MEAN CELL VOLUME 91.5 fl (80-96); MEAN PLT VOLUME 9.2 fl (7.5-11.1); MONO % 5.3 % (3.8-10.2); NEUT % 78.6 % (42.8-82.8); PLATELET COUNT 251 K/MM3 (134-434); RBC 4.27 M/mm3 (4.00-5.60); RDW 13.4 % (11.9-15.9); WHITE BLOOD COUNT 7.8 K/mm3 (4.0-10.0)
[2021-02-27 08:28] LABS: ALBUMIN 2.8 g/dl (3.4-5.0); BLOOD UREA NITROGEN 16.9 mg/dL (7-18)
[2021-02-27 08:31] LABS: CREATININE 0.7 mg/dL (0.55-1.3)
[2021-02-27 08:33] LABS: BILIRUBIN,TOTAL 0.4 mg/dL (0.2-1); TOT PROT 6.8 g/dl (6.4-8.2)
[2021-02-27] MEDS ORDERED: POLYETHYLENE GLYCOL 3350 119 GM BTL PO SCH (10:00)
[2021-02-27] MEDS ORDERED: PT OWN MED DRAWER 7, Y5N ONE (11:18)
[2021-02-27] MEDS: FAMOTIDINE 40 MG/5 ML ORAL SUSPENSION PO SCH (11:20)
[2021-02-27 14:13] VITALS: BP 97/65; PULSE 92; TEMP 98.5
[2021-02-27] MEDS ORDERED: SENNOSIDES 8.8 MG/5 ML BULK BOTTLE PO SCH (22:00)
[2021-02-27] MEDS ORDERED: DOCUSATE NA 100 MG/10 ML UNIT-DOSE CUPS PO SCH (22:00)
== END 2021-02-27 16:17 | DRG 177 ==
LOC: JER 15:47 → JERBED 17:21 → J4W 02-21 16:19 → J7W 02-22 17:56
PROVIDERS: ADMIT Internal Medicine; ATTEND Internal Medicine
PROC: 0DB78ZX Excision of Stomach, Pylorus, Via Natural or Artificial Opening Endoscopic, Diagnostic (ICD-10-PCS; 2021-02-27)
PROC: 0DB58ZX Excision of Esophagus, Via Natural or Artificial Opening Endoscopic, Diagnostic (ICD-10-PCS; 2021-02-27)
PROC: 0D758ZZ Dilation of Esophagus, Via Natural or Artificial Opening Endoscopic (ICD-10-PCS; 2021-02-27)
PROC: 0DB98ZX Excision of Duodenum, Via Natural or Artificial Opening Endoscopic, Diagnostic (ICD-10-PCS; principal; 2021-02-27 09:14)
DX: J69.0 Pneumonitis due to inhalation of food and vomit (principal); J96.01 Acute respiratory failure with hypoxia; K92.0 Hematemesis; G30.9 Alzheimer's disease, unspecified; F02.80 Dementia in other diseases classified elsewhere, unspecified severity, without behavioral disturbance, psychotic disturbance, mood disturbance, and anxiety; Z93.1 Gastrostomy status; E03.9 Hypothyroidism, unspecified; K59.00 Constipation, unspecified; K44.9 Diaphragmatic hernia without obstruction or gangrene; K21.00 Gastro-esophageal reflux disease with esophagitis, without bleeding
CPT/HCPCS: 36415; 71045-TC-FY; 71250-TC; 74177-TC; 80048; 80053; 81003; 82272; 82803; 83605; 84484; 85025; 85027; 85610; 85730; 87040; 87086; 88305-TC; 93005; 93010; 99285-25; C9803; Q9967; U0003; U0005

== ENCOUNTER 2021-03-17 11:26 | Inpatient (IN) | payer OTHER ==
[2021-03-17] MEDS ORDERED: ACETAMINOPHEN INJECTION 100 ML IVPB ONE (11:44)
[2021-03-17] MEDS ORDERED: SODIUM CHLORIDE 0.9% 500 ML INFUS.BAG IV ONE (11:57)
[2021-03-17] MEDS ORDERED: ACETAMINOPHEN 1000 MG/100 ML VIAL (NON FORMULARY) IVPB ONE (11:57)
[2021-03-17 12:18] LABS: EPI CELLS >36 /uL (0-25.1); HYALINE CASTS 27 /uL (0-3.1); URINE APPEARANCE CLOUDY; URINE BILIRUBIN NEGATIVE (NEGATIVE); URINE COLOR DK YELLOW; URINE GLUCOSE (UA) NEGATIVE (NEGATIVE); URINE KETONE TRACE (NEGATIVE); URINE LEUK ESTERASE NEGATIVE (NEGATIVE); URINE NITRITE POSITIVE (NEGATIVE); URINE PROTEIN 2+ (NEGATIVE); URINE WBC 15 /uL (0-25.8)
[2021-03-17 12:29] LABS: VENOUS PCO2 47.2 mmHg (38-52); VENOUS PH 7.387 (7.310-7.410)
[2021-03-17 12:34] LABS: BASO % 0.2 % (0-2.0); HEMATOCRIT 47.6 % (35.4-49); HEMOGLOBIN 15.6 GM/dL (11.7-16.9); LYMPH % 11.2 % (8-40); MCH 31.8 pg (25.7-33.7); MCHC 32.8 g/dl (32.0-35.9); MEAN CELL VOLUME 96.7 fl (80-96); MEAN PLT VOLUME 11.3 fl (7.5-11.1); MONO % 6.5 % (3.8-10.2); NEUT % 82.1 % (42.8-82.8); PLATELET COUNT 220 K/MM3 (134-434); RBC 4.92 M/mm3 (4.00-5.60); RDW 14.8 % (11.9-15.9); URINE RBC 71.4 /uL (0-23.9); WHITE BLOOD COUNT 12.7 K/mm3 (4.0-10.0)
[2021-03-17 12:35] LABS: URINE BACTERIA 10.5 /uL (0-1359)
[2021-03-17 12:40] LABS: INR 1.21 (0.83-1.09); PROTHROMBIN TIME (PATIENT) 14.8 SEC (9.7-13.0)
[2021-03-17 12:43] LABS: ACTIVATED PTT 33.6 SECONDS (25.2-36.5)
[2021-03-17 12:46] LABS: CHLORIDE 126 mmol/L (98-107)
[2021-03-17 12:48] LABS: CALCIUM 9.1 mg/dL (8.5-10.1)
[2021-03-17 12:49] LABS: ALBUMIN 2.8 g/dl (3.4-5.0); BLOOD UREA NITROGEN 51.9 mg/dL (7-18); CO2 29 mmol/L (21-32); GLUCOSE,RANDOM 160 mg/dL (74-106)
[2021-03-17 12:52] LABS: CREATININE 1.5 mg/dL (0.55-1.3); SGOT/AST 68 U/L (15-37); SGPT/ALT 129 U/L (13-61)
[2021-03-17 12:54] LABS: TOT PROT 7.6 g/dl (6.4-8.2)
[2021-03-17 12:55] LABS: ALK PHOS 121 U/L (45-117)
[2021-03-17 13:00] LABS: ANION GAP 7 MMOL/L (8-16); SODIUM 163 mmol/L (136-145)
[2021-03-17] MEDS ORDERED: VANCOMYCIN 1 GM in D5W (PRE-DOCKED) 1,000 MG/250 ML IVPB ONE (13:04)
[2021-03-17] MEDS ORDERED: PIPERACILLIN/TAZOB 3.375 GM 3.375 GM in DEXTROSE 5%-WATER - 50 ML IVPB ONE (13:04)
[2021-03-17 13:10] LABS: LACTIC ACID 2.4 mmol/L (0.4-2.0)
[2021-03-17] MEDS ORDERED: VANCOMYCIN 1 GRAM (PRE-DOCKED) 1,000 MG/250 ML BAG IVPB ONE (13:46)
[2021-03-17] MEDS ORDERED: ACETAMINOPHEN 650 MG/20.3 ML ORAL SOLUTION (CUPS) GT PRN (15:33)
[2021-03-17] MEDS: SODIUM CHLORIDE 1,000 ML IV SCH (16:06)
[2021-03-17] MEDS ORDERED: PIPERACILLIN/TAZOB 2.25 GM 2.25 GM in DEXTROSE 5%-WATER - 50 ML IVPB SCH (18:00)
[2021-03-17] MEDS ORDERED: PIPERACILLIN/TAZOB 2.25 GM 2.25 GM/50 ML BAG IVPB ONE (18:04)
[2021-03-17] MEDS: PIPERACILLIN/TAZOB 2.25 GM 2.25 GM in DEXTROSE 5%-WATER - 50 ML IVPB SCH (18:14)
[2021-03-17] MEDS: DOCUSATE NA 100 MG/10 ML UNIT-DOSE CUPS GT SCH (22:47)
[2021-03-17] MEDS: HEPARIN NA (PORCINE) 5,000 UNITS/ML 1ML VIAL SQ SCH (22:47)
[2021-03-18] MEDS ORDERED: morphine SULFATE 4 MG/ML VIAL IVPUSH ONE (00:37)
[2021-03-18] MEDS ORDERED: PIPERACILLIN/TAZOBACTAM 2.25 GM VIAL IVPB ONE ×2 (01:56→09:08)
[2021-03-18] MEDS ORDERED: DEXTROSE 5%-WATER - 50 ML IVPB ONE ×3 (01:56→10:36)
[2021-03-18] MEDS: PIPERACILLIN/TAZOB 2.25 GM 2.25 GM in DEXTROSE 5%-WATER - 50 ML IVPB SCH ×2 (01:58→09:14)
[2021-03-18] MEDS: HEPARIN NA (PORCINE) 5,000 UNITS/ML 1ML VIAL SQ SCH ×3 (05:26→22:35)
[2021-03-18] MEDS: LEVOTHYROXINE NA 50 MCG TABLET (FP) GT SCH (06:27)
[2021-03-18] MEDS ORDERED: PT OWN MED DRAWER 7, Y5N ONE (09:08)
[2021-03-18] MEDS ORDERED: cefTRIAXone SODIUM 1 GM VIAL ONE (10:36)
[2021-03-18] MEDS: CEFTRIAXONE 1 GM in DEXTROSE 5%-WATER - 50 ML IVPB SCH (10:42)
[2021-03-18] MEDS: FAMOTIDINE 40 MG/5 ML ORAL SUSPENSION NGT SCH (10:42)
[2021-03-18 12:44] LABS: BASO % 0.1 % (0-2.0); EOS % 0.1 % (0-4.5); HEMATOCRIT 39.5 % (35.4-49); HEMOGLOBIN 12.8 GM/dL (11.7-16.9); LYMPH % 9.5 % (8-40); MCH 31.6 pg (25.7-33.7); MCHC 32.3 g/dl (32.0-35.9); MEAN CELL VOLUME 97.8 fl (80-96); MEAN PLT VOLUME 11.5 fl (7.5-11.1); MONO % 3.5 % (3.8-10.2); NEUT % 86.8 % (42.8-82.8); PLATELET COUNT 168 K/MM3 (134-434); RBC 4.04 M/mm3 (4.00-5.60); RDW 15.2 % (11.9-15.9); WHITE BLOOD COUNT 10.8 K/mm3 (4.0-10.0)
[2021-03-18 13:00] LABS: CHLORIDE 131 mmol/L (98-107)
[2021-03-18 13:04] LABS: BLOOD UREA NITROGEN 44.4 mg/dL (7-18); CALCIUM 7.9 mg/dL (8.5-10.1); CO2 26 mmol/L (21-32)
[2021-03-18 13:05] LABS: GLUCOSE,RANDOM 179 mg/dL (74-106)
[2021-03-18 13:07] LABS: SGPT/ALT 100 U/L (13-61)
[2021-03-18 13:08] LABS: CREATININE 1.1 mg/dL (0.55-1.3); SGOT/AST 35 U/L (15-37)
[2021-03-18 13:09] LABS: BILIRUBIN,TOTAL 0.7 mg/dL (0.2-1); TOT PROT 5.8 g/dl (6.4-8.2)
[2021-03-18 13:15] LABS: ALBUMIN 2.1 g/dl (3.4-5.0); ALK PHOS 88 U/L (45-117); ANION GAP 4 MMOL/L (8-16); SODIUM 161 mmol/L (136-145)
[2021-03-18] MEDS ORDERED: POTASSIUM CHLORIDE ORAL LIQUID 20 MEQ/15 ML PO ONE (16:54)
[2021-03-18] MEDS: SODIUM CHLORIDE 1,000 ML IV SCH (17:34)
[2021-03-18] MEDS: DOCUSATE NA 100 MG/10 ML UNIT-DOSE CUPS GT SCH (22:35)
[2021-03-19] MEDS: SODIUM CHLORIDE 1,000 ML IV SCH ×3 (03:07→19:27)
[2021-03-19] MEDS: LEVOTHYROXINE NA 50 MCG TABLET (FP) GT SCH (06:05)
[2021-03-19] MEDS: HEPARIN NA (PORCINE) 5,000 UNITS/ML 1ML VIAL SQ SCH ×3 (06:05→21:03)
[2021-03-19] MEDS ORDERED: PT OWN MED DRAWER 7, Y5N ONE (10:51)
[2021-03-19] MEDS ORDERED: DEXTROSE 5%-WATER - 50 ML IVPB ONE (10:53)
[2021-03-19] MEDS ORDERED: cefTRIAXone SODIUM 1 GM VIAL ONE (10:53)
[2021-03-19] MEDS: CEFTRIAXONE 1 GM in DEXTROSE 5%-WATER - 50 ML IVPB SCH (11:08)
[2021-03-19] MEDS: FAMOTIDINE 40 MG/5 ML ORAL SUSPENSION NGT SCH (11:10)
[2021-03-19 15:49] VITALS: BMI 23.2
[2021-03-19] MEDS: DOCUSATE NA 100 MG/10 ML UNIT-DOSE CUPS GT SCH (21:03)
[2021-03-20] MEDS: SODIUM CHLORIDE 0.45% 1,000 ML IV SCH ×2 (04:38→15:39)
[2021-03-20] MEDS: HEPARIN NA (PORCINE) 5,000 UNITS/ML 1ML VIAL SQ SCH ×3 (05:59→21:08)
[2021-03-20] MEDS: LEVOTHYROXINE NA 50 MCG TABLET (FP) GT SCH (06:00)
[2021-03-20 08:55] LABS: BASO % 0.4 % (0-2.0); HEMATOCRIT 31.8 % (35.4-49); HEMOGLOBIN 10.5 GM/dL (11.7-16.9); LYMPH % 11.7 % (8-40); MCH 32.4 pg (25.7-33.7); MCHC 32.9 g/dl (32.0-35.9); MEAN CELL VOLUME 98.4 fl (80-96); MEAN PLT VOLUME 11.9 fl (7.5-11.1); NEUT % 81.9 % (42.8-82.8); PLATELET COUNT 158 K/MM3 (134-434); RBC 3.23 M/mm3 (4.00-5.60); RDW 14.9 % (11.9-15.9); WHITE BLOOD COUNT 6.9 K/mm3 (4.0-10.0)
[2021-03-20 09:47] LABS: ALBUMIN 1.8 g/dl (3.4-5.0); BILIRUBIN,TOTAL 0.3 mg/dL (0.2-1); BLOOD UREA NITROGEN 27.3 mg/dL (7-18); CALCIUM 7.5 mg/dL (8.5-10.1); CREATININE 0.7 mg/dL (0.55-1.3); TOT PROT 5.3 g/dl (6.4-8.2)
[2021-03-20] MEDS ORDERED: cefTRIAXone SODIUM 1 GM VIAL ONE (10:39)
[2021-03-20] MEDS ORDERED: PT OWN MED DRAWER 7, Y5N ONE (10:39)
[2021-03-20] MEDS ORDERED: DEXTROSE 5%-WATER - 50 ML IVPB ONE (10:40)
[2021-03-20] MEDS: CEFTRIAXONE 1 GM in DEXTROSE 5%-WATER - 50 ML IVPB SCH (10:42)
[2021-03-20] MEDS: FAMOTIDINE 40 MG/5 ML ORAL SUSPENSION NGT SCH (10:43)
[2021-03-20] MEDS: DOCUSATE NA 100 MG/10 ML UNIT-DOSE CUPS GT SCH (21:11)
[2021-03-21] MEDS: HEPARIN NA (PORCINE) 5,000 UNITS/ML 1ML VIAL SQ SCH ×2 (06:16→14:54)
[2021-03-21] MEDS: SODIUM CHLORIDE 0.45% 1,000 ML IV SCH (06:16)
[2021-03-21] MEDS: LEVOTHYROXINE NA 50 MCG TABLET (FP) GT SCH (06:16)
[2021-03-21] MEDS ORDERED: PT OWN MED DRAWER 7, Y5N ONE (11:33)
[2021-03-21] MEDS: FAMOTIDINE 40 MG/5 ML ORAL SUSPENSION NGT SCH (11:41)
[2021-03-21 12:18] LABS: CALCIUM 7.6 mg/dL (8.5-10.1)
[2021-03-21 12:19] LABS: BLOOD UREA NITROGEN 20.6 mg/dL (7-18)
[2021-03-21 12:22] LABS: CREATININE 0.6 mg/dL (0.55-1.3)
[2021-03-21 16:21] VITALS: BP 131/76; PULSE 77; TEMP 98.7
== END 2021-03-21 21:37 | DRG 689 ==
LOC: JER 11:26 → JERBED 13:46 → J8W 21:28
PROVIDERS: ADMIT Internal Medicine; ATTEND Internal Medicine
PROC: 3E0H76Z Introduction of Nutritional Substance into Lower GI, Via Natural or Artificial Opening (ICD-10-PCS; principal; 2021-03-17)
DX: N39.0 Urinary tract infection, site not specified (principal); R53.2 Functional quadriplegia; E87.0 Hyperosmolality and hypernatremia; Z93.1 Gastrostomy status; E03.9 Hypothyroidism, unspecified; E86.0 Dehydration; R09.02 Hypoxemia; R00.0 Tachycardia, unspecified; G30.9 Alzheimer's disease, unspecified; F02.80 Dementia in other diseases classified elsewhere, unspecified severity, without behavioral disturbance, psychotic disturbance, mood disturbance, and anxiety
CPT/HCPCS: 36415; 71045-TC-FY; 80048; 80053; 81003; 82550; 82803; 83605; 84484; 85025; 85610; 85730; 87040; 87086; 93005; 93010; 99285-25; C9803; J0131; J1644; U0003; U0005

== ENCOUNTER 2021-04-22 09:12 | Inpatient (IN) | payer OTHER ==
[2021-04-22 10:57] LABS: BASO % 1.1 % (0-2.0); EOS % 6.3 % (0-4.5); HEMATOCRIT 41.1 % (35.4-49); HEMOGLOBIN 14.1 GM/dL (11.7-16.9); LYMPH % 20.3 % (8-40); MCH 31.6 pg (25.7-33.7); MCHC 34.3 g/dl (32.0-35.9); MEAN CELL VOLUME 92.1 fl (80-96); MONO % 9.2 % (3.8-10.2); NEUT % 63.1 % (42.8-82.8); PLATELET COUNT 254 10^3/uL (134-434); RBC 4.46 M/mm3 (4.00-5.60); RDW 14.2 % (11.9-15.9); WHITE BLOOD COUNT 5.9 K/mm3 (4.0-10.0)
[2021-04-22 11:21] LABS: BLOOD UREA NITROGEN 27.5 mg/dL (7-18); CALCIUM 9.3 mg/dL (8.5-10.1)
[2021-04-22 11:22] LABS: ALBUMIN 3.3 g/dl (3.4-5.0)
[2021-04-22 11:24] LABS: CREATININE 0.8 mg/dL (0.55-1.3)
[2021-04-22 11:26] LABS: BILIRUBIN,TOTAL 0.4 mg/dL (0.2-1); TOT PROT 7.7 g/dl (6.4-8.2)
[2021-04-22] MEDS: DEXTROSE 5%-NORMAL SALINE 1,000 ML IV SCH (13:13)
[2021-04-22 18:05] VITALS: BMI 22.8
[2021-04-22] MEDS ORDERED: ACETAMINOPHEN 1000 MG/100 ML VIAL (NON FORMULARY) IVPB ONE (18:28)
[2021-04-23] MEDS: DEXTROSE 5%-NORMAL SALINE 1,000 ML IV SCH ×2 (06:09→16:41)
[2021-04-24] MEDS ORDERED: ONDANSETRON 4 MG/2 ML VIAL IVPUSH PRN (13:35)
[2021-04-24] MEDS: PANTOPRAZOLE SODIUM 40 MG VIAL IVPUSH SCH (14:47)
[2021-04-24] MEDS: DEXTROSE 5%-NORMAL SALINE 1,000 ML IV SCH (14:51)
[2021-04-24 15:32] LABS: HEMATOCRIT 41.9 % (35.4-49); HEMOGLOBIN 14.1 GM/dL (11.7-16.9); MCHC 33.5 g/dl (32.0-35.9); MEAN CELL VOLUME 92.3 fl (80-96); MEAN PLT VOLUME 9.2 fl (7.5-11.1); PLATELET COUNT 304 10^3/uL (134-434); RBC 4.54 M/mm3 (4.00-5.60); RDW 14.1 % (11.9-15.9); WHITE BLOOD COUNT 18.1 K/mm3 (4.0-10.0)
[2021-04-24 15:51] LABS: ALBUMIN 3.4 g/dl (3.4-5.0); BLOOD UREA NITROGEN 15.8 mg/dL (7-18); CALCIUM 8.7 mg/dL (8.5-10.1)
[2021-04-24 15:55] LABS: CREATININE 0.8 mg/dL (0.55-1.3)
[2021-04-24 15:56] LABS: BILIRUBIN,TOTAL 1.3 mg/dL (0.2-1); TOT PROT 7.7 g/dl (6.4-8.2)
[2021-04-25] MEDS: DEXTROSE 5%-NORMAL SALINE 1,000 ML IV SCH (04:09)
[2021-04-25] MEDS: PANTOPRAZOLE SODIUM 40 MG VIAL IVPUSH SCH (09:02)
[2021-04-25 09:10] LABS: HEMATOCRIT 41.1 % (35.4-49); HEMOGLOBIN 13.4 GM/dL (11.7-16.9); MCHC 32.7 g/dl (32.0-35.9); MEAN CELL VOLUME 94.8 fl (80-96); MEAN PLT VOLUME 9.8 fl (7.5-11.1); PLATELET COUNT 271 10^3/uL (134-434); RBC 4.34 M/mm3 (4.00-5.60); RDW 14.8 % (11.9-15.9); WHITE BLOOD COUNT 13.8 K/mm3 (4.0-10.0)
[2021-04-25] MEDS: DONEPEZIL HCL 5 MG TABLET (FP) GT SCH (21:21)
[2021-04-26] MEDS: LEVOTHYROXINE NA 50 MCG TABLET (FP) GT SCH (06:17)
[2021-04-26 07:56] LABS: HEMATOCRIT 42.3 % (35.4-49); HEMOGLOBIN 14.1 GM/dL (11.7-16.9); MCH 31.2 pg (25.7-33.7); MCHC 33.3 g/dl (32.0-35.9); MEAN CELL VOLUME 93.6 fl (80-96); PLATELET COUNT 292 10^3/uL (134-434); RBC 4.52 M/mm3 (4.00-5.60); RDW 14.8 % (11.9-15.9); WHITE BLOOD COUNT 7.2 K/mm3 (4.0-10.0)
[2021-04-26] MEDS: PANTOPRAZOLE SODIUM 40 MG VIAL IVPUSH SCH (10:38)
[2021-04-26] MEDS: DONEPEZIL HCL 5 MG TABLET (FP) GT SCH (21:04)
[2021-04-27] MEDS ORDERED: ACETAMINOPHEN 1000 MG/100 ML VIAL (NON FORMULARY) IVPB ONE (00:21)
[2021-04-27] MEDS: LEVOTHYROXINE NA 50 MCG TABLET (FP) GT SCH (06:53)
[2021-04-27] MEDS: PANTOPRAZOLE SODIUM 40 MG VIAL IVPUSH SCH (09:46)
[2021-04-27] MEDS: FUROSEMIDE 40 MG/4 ML INJECTABLE VIAL IVPUSH SCH (13:50)
[2021-04-27 16:45] LABS: HEMATOCRIT 41.8 % (35.4-49); LYMPH % 4.8 % (8-40); MCH 31.4 pg (25.7-33.7); MCHC 33.6 g/dl (32.0-35.9); MEAN CELL VOLUME 93.3 fl (80-96); MEAN PLT VOLUME 10.1 fl (7.5-11.1); MONO % 3.2 % (3.8-10.2); PLATELET COUNT 282 10^3/uL (134-434); RBC 4.48 M/mm3 (4.00-5.60); RDW 14.8 % (11.9-15.9); WHITE BLOOD COUNT 9.1 K/mm3 (4.0-10.0)
[2021-04-27 17:05] LABS: CALCIUM 9.2 mg/dL (8.5-10.1)
[2021-04-27 17:09] LABS: CREATININE 1.8 mg/dL (0.55-1.3)
[2021-04-27 17:10] LABS: BILIRUBIN,TOTAL 1.9 mg/dL (0.2-1)
[2021-04-27 17:14] LABS: ALBUMIN 2.5 g/dl (3.4-5.0); BLOOD UREA NITROGEN 45.5 mg/dL (7-18)
[2021-04-27 17:34] LABS: ANISOCYTOSIS 1+; MACROCYTOSIS 0; PLATELET ESTIMATE NORMAL
[2021-04-27 19:44] LABS: BLOOD UREA NITROGEN 47.3 mg/dL (7-18)
[2021-04-27 19:48] LABS: CREATININE 1.8 mg/dL (0.55-1.3)
[2021-04-27] MEDS: DONEPEZIL HCL 5 MG TABLET (FP) GT SCH (21:21)
[2021-04-28] MEDS: LEVOTHYROXINE NA 50 MCG TABLET (FP) GT SCH (06:48)
[2021-04-28] MEDS: FUROSEMIDE 40 MG/4 ML INJECTABLE VIAL IVPUSH SCH (09:29)
[2021-04-28] MEDS: PANTOPRAZOLE SODIUM 40 MG VIAL IVPUSH SCH (09:29)
[2021-04-28 09:56] LABS: HEMOGLOBIN 12.8 GM/dL (11.7-16.9); LYMPH % 4.2 % (8-40); MCHC 32.9 g/dl (32.0-35.9); MEAN CELL VOLUME 94.3 fl (80-96); MEAN PLT VOLUME 10.4 fl (7.5-11.1); MONO % 3.7 % (3.8-10.2); NEUT % 92.1 % (42.8-82.8); PLATELET COUNT 268 10^3/uL (134-434); RBC 4.14 M/mm3 (4.00-5.60)
[2021-04-28 10:10] LABS: CHLORIDE 118 mmol/L (98-107); SODIUM 154 mmol/L (136-145)
[2021-04-28 10:20] LABS: CALCIUM 8.9 mg/dL (8.5-10.1)
[2021-04-28 10:21] LABS: ALBUMIN 2.1 g/dl (3.4-5.0); BLOOD UREA NITROGEN 56.8 mg/dL (7-18); CO2 27 mmol/L (21-32); GLUCOSE,RANDOM 158 mg/dL (74-106)
[2021-04-28 10:24] LABS: CREATININE 1.5 mg/dL (0.55-1.3); SGOT/AST 24 U/L (15-37)
[2021-04-28 10:26] LABS: BILIRUBIN,TOTAL 0.7 mg/dL (0.2-1); TOT PROT 6.5 g/dl (6.4-8.2)
[2021-04-28 10:27] LABS: ALK PHOS 101 U/L (45-117)
[2021-04-28 10:32] LABS: SGPT/ALT 32 U/L (13-61)
[2021-04-28 10:39] LABS: ANION GAP 9 MMOL/L (8-16)
[2021-04-28 10:48] LABS: ANISOCYTOSIS 1+; MACROCYTOSIS 0; PLATELET ESTIMATE NORMAL
[2021-04-28] MEDS ORDERED: POTASSIUM CHLORIDE ORAL LIQUID 20 MEQ/15 ML GT ONE (11:02)
[2021-04-28] MEDS: KCL 10 MEQ IVPB 10 MEQ/100 ML INFUS.BAG IVPB SCH ×2 (11:37→13:42)
[2021-04-28] MEDS: ALBUTEROL SO4 2.5/IPRATROPIUM 0.5 INH SOL 3 ML VIAL.NEB. NEB PRN ×3 (11:40→23:44)
[2021-04-28] MEDS ORDERED: ALBUTEROL SO4 0.083% IH SOL 2.5 MG/3 ML VIAL.NEB. NEB PRN (11:47)
[2021-04-28 14:45] VITALS: BP 106/72; PULSE 150; TEMP 100.2
[2021-04-28] MEDS ORDERED: VANCOMYCIN 1 GRAM (PRE-DOCKED) 1,000 MG/250 ML BAG IVPB SCH (16:00)
[2021-04-28] MEDS ORDERED: DEXTROSE 5%-WATER - 50 ML IVPB ONE (16:27)
[2021-04-28] MEDS ORDERED: PIPERACILLIN/TAZOBACTAM 3.375 GM VIAL IVPB ONE (16:27)
[2021-04-28] MEDS ORDERED: PIPERACILLIN/TAZOB 3.375 GM 3.375 GM in DEXTROSE 5%-WATER - 50 ML IVPB SCH (18:00)
[2021-04-28] MEDS: DONEPEZIL HCL 5 MG TABLET (FP) GT SCH (22:12)
[2021-04-29] MEDS ORDERED: PIPERACILLIN/TAZOBACTAM 3.375 GM VIAL IVPB ONE (01:17)
[2021-04-29] MEDS ORDERED: DEXTROSE 5%-WATER - 50 ML IVPB ONE (01:18)
[2021-04-29] MEDS ORDERED: FUROSEMIDE 40 MG/5 ML UNIT-DOSE CUP GT SCH (10:00)
[2021-04-29] MEDS ORDERED: PANTOPRAZOLE SOD 40 MG SUSPENSION PACKET NR SCH (10:00)
[2021-04-29] MEDS ORDERED: FUROSEMIDE 20 MG TABLET (FP) GT SCH (10:00)
[2021-04-29] MEDS ORDERED: FAMOTIDINE 40 MG/5 ML ORAL SUSPENSION NGT SCH (10:00)
== END 2021-04-29 01:44 | disposition expired | DRG 919 ==
LOC: JER 09:12 → JERBED 10:26 → J6S 16:48 → OBSVTOIN 04-25 08:57
PROVIDERS: ADMIT Internal Medicine; ATTEND Internal Medicine
PROC: 0D20XUZ Change Feeding Device in Upper Intestinal Tract, External Approach (ICD-10-PCS; principal; 2021-04-23)
DX: T85.528A Displacement of other gastrointestinal prosthetic devices, implants and grafts, initial encounter (principal); J96.01 Acute respiratory failure with hypoxia; J69.0 Pneumonitis due to inhalation of food and vomit; A41.59 Other Gram-negative sepsis; N17.9 Acute kidney failure, unspecified; F02.80 Dementia in other diseases classified elsewhere, unspecified severity, without behavioral disturbance, psychotic disturbance, mood disturbance, and anxiety; E03.9 Hypothyroidism, unspecified; G30.9 Alzheimer's disease, unspecified; R13.10 Dysphagia, unspecified; E78.5 Hyperlipidemia, unspecified; Y83.9 Surgical procedure, unspecified as the cause of abnormal reaction of the patient, or of later complication, without mention of misadventure at the time of the procedure
CPT/HCPCS: 36415; 49450; 71045-TC-FY; 80048; 80053; 85025; 85027; 87040; 87070; 87186; 87205; 93005; 93010; 94640; 99285-25; C9803; G0378; J0131; U0003; U0005